=== PATIENT | male | born 1940 | race Caucasian/White ===

== ENCOUNTER 2021-09-21 16:44 | Outpatient (REF) | payer MEDICARE, SELFPAY ==
--- NOTE | 2021-09-21 12:30 | SKI_PTH ---
PATIENT: Devin Kim LOC: [facility] U#:[id number] AGE/SX: 80/M ROOM: RE09/21/[address]: Oc Moseley : 1940 BED: DIS: 09/21/2021 SPEC #: [id number] RECD: 09/21/21 16:51 STATUS: ALEXI PIERRE #: [id number] QUIRINO: 09/21/21 12:[address]: Oc Moseley DEPT: Surgical Specimen RECD BY: Mercedes Holman Tissues: 1 - SKIN BIOPSY(SHAVE/PUNCH) Procedures: SKIN LEVEL 4 Comments: [id number]
== END 2021-09-21 16:45 | disposition home or self-care (01) ==
LOC: NCHCN 16:44
PROVIDERS: PCP Physician Assistant; Visit Provider Physician Assistant
DX: L82.1 Other seborrheic keratosis (principal)
CPT/HCPCS: 88305

== ENCOUNTER 2022-04-06 15:02 | Outpatient (REF) | payer MEDICARE, SELFPAY ==
[2022-04-06 17:27] LABS: TSH 4.09 uIU/mL (0.36-3.74)
== END 2022-04-06 15:03 | disposition home or self-care (01) ==
LOC: NCHCN 15:02
PROVIDERS: PCP Physician Assistant; Visit Provider Physician Assistant
DX: E03.9 Hypothyroidism, unspecified (principal)
CPT/HCPCS: 84443

== ENCOUNTER 2022-06-24 10:14 | Outpatient (REF) | payer MEDICARE, SELFPAY ==
[2022-06-24 15:57] LABS: Anion Gap 6.5 mmol/L (3-11); BUN 24 mg/dL (7-18); CO2 31.5 mmol/L (21.0-32.0); CREATININE 1.2 mg/dL (0.70-1.30); Calcium 9.4 mg/dL (8.5-10.1); Chloride 99 mmol/L (98-107); Estimated GFR 60.75 (mL/min/1.73m2); FREE T4 1.05 ng/dL (0.76-1.46); Glucose 106 mg/dL (74-106); NT-proBNP 2037 pg/mL (<300); Potassium 3.8 mmol/L (3.5-5.1); Sodium 137 mmol/L (136-145)
== END 2022-06-24 10:15 | disposition home or self-care (01) ==
LOC: NCHCN 10:14
PROVIDERS: PCP Physician Assistant; Visit Provider Physician Assistant
DX: I50.9 Heart failure, unspecified (principal)
CPT/HCPCS: 80048; 83880; 84439; 84443

== ENCOUNTER 2022-11-16 11:57 | Inpatient (IN) | payer MEDICARE, SELFPAY ==
[2022-11-16] VITALS (122 sets, daily range): BP systolic 58–124; BP diastolic 31–78; PULSE 59–87; RESP 10–33; TEMP 36.6–37.1; O2SAT 94–100
--- NOTE | 2022-11-16 11:45 | RT.EKG_ITS ---
APPROVED REPORT Exam: Resting ECG Reason for Exam: LOW B/P Patient Location: E HR:68 bpm ECG Measurements Heart Rate [address] 87 P 59 QRSd 179 QRS 87 QT 481 T 254 QTc 512 Conclusion Sinus rhythm...normal P axis, V-rate 60- 99 Right bundle branch block...QRSd>120, terminal axis(90,270) Anteroseptal infarct, age indeterminate...Q >35mS, T neg, V1-V2
[2022-11-16] MEDS: Lactated Ringers 1,000 ML 1000 ML IV ×2 (12:10→13:10)
--- NOTE | 2022-11-16 12:22 | ED.GENADUL_ITS ---
Discharge Plan Disposition Patient Disposition: Admit to [facility] Condition: Serious Discharge Details Chief Complaint: GenMedical Clinical Impression: Diarrhea, Acute dehydration, Acute renal failure, Acute hyponatremia Primary Care Provider: Oc Moseley ED Provider: Yonas Christensen Home Meds and New Rx's Prescriptions: No Action ascorbate calcium (vitamin C) 500 mg tablet 1 g PO DAILY metoprolol succinate 25 mg tablet extended release 24 hr 12.5 mg PO DAILY atorvastatin 20 mg tablet 20 mg PO DAILY levothyroxine [Synthroid] 75 mcg tablet 75 mcg PO DAILY aspirin [Adult Aspirin Regimen] 81 mg tablet,delayed release (DR/EC) 81 mg PO DAILY Centrum Silver 0.4 mg-300 mcg- 250 mcg tablet 1 tab PO DAILY Medical Decision Making 81 y.o.?man?with a PMH of?CHB s/p PPM, AAA (3.1 cm'?2017 and 2.9 cm 2019), HTN, HLD, remote smoking history(quit 50 years ago,?16 pack year), recent NSTEMI at [facility] treated medically with a chronic total occlusion of the LAD and course complicated by low blood pressure is now presenting with diarrhea. No black or bloody stools or fever to suggest serious bacterial infection as the cause of the diarrhea. Likely viral gastro. Likely has low blood pressure here secondary to dehydration appears clinically dehydrated on exam. Giving IV fluids. We will get broad labs to look for electrolyte or metabolic derangements. No abdominal tenderness to suggest intra-abdominal abscess or other pathology. Lab no other focal findings to suspect a separate etiology for the low blood pressure. No focal signs of infection and no fever. No chest pain or shortness of breath. No cough. Will give IV fluids and await initial labs and reevaluate. 150pm Labs significantly deranged with significant hyponatremia to 120. Also with a new acute kidney injury with creatinine to 10. GFR is 4. Patient says that he is still peeing even up until this morning. His blood pressure was improving with IV fluids and almost finished third liter with an improved blood pressure but has now gone to a systolic blood pressure in the 80s. We will start Levophed to treat. Doubt sepsis but given the severity of the patient's illness we will draw blood cultures and give a single dose of IV antibiotics and no focal signs of infection. I reached out to the nephrology team at [facility] and Spoke to Nilesh Heart who recommended continued IV fluids and checking a CK level and a renal ultrasound. He thinks this could be from the multiple medications the patient is on and the diarrheal illness with dehydration. He would want labs checked every 12 hours for worsening creatinine or kidney function and would want a Torres catheter to monitor urine output. Torres catheter ordered. We will reach out to the hospitalist team for further treatment and monitoring of diarrhea, dehydration, and acute renal failure. 215pm Spoke to hospitalist who agreed to admission. Okay with management as above. Asking to cancel ultrasound and add on CT abdomen pelvis without contrast which I have done and also ordered flu/COVID. Patient improving on Levophed. Has only made about 50 mL of urine. Torres catheter in place. Care transitioned at this time to the hospitalist team and patient going to the ICU. Medical Records Medical records reviewed: Yes I reviewed the patient's medical records. Medical records narrative: Franklin, Quyen, MDResidentCardiology?Discharge Summary???Attested?Date of Service:?06/15/2022 12:09 N Attestation signed by Jory Villalpando MD at 06/15/2022 20:46I evaluated the patient and discussed with the team. I agree with the findings and plan as outlined. Close outpt f/u on ICM/HFrEF due to HEALTH INFORMATION SYSTEMS TECHNICIAN of mLAD, echo suggestive of likely nonviable territory but pursue GDMT, cardiac rehab. Despite echo appearance, can pursue outpt viability study and if LAD territory viability then d/w Interventional regarding possible attempt at LAD intervention.?Jory Villalpando MDAselect [facility] [employer], [facility]? ?[facility]?is an 81 y.o.?man?with a PMH of?CHB s/p PPM, AAA (3.1 cm'?2017 and 2.9 cm 2019), HTN, HLD, remote smoking history(quit 50 years ago,?16 pack year)?who presented as a transferred from [facility] for management of NSTEMI.?Patient reports that he had shortness of breath and chest pressure a month ago which was transient and resolved in a few days. ?He had recurrence of symptoms 5 days ago but felt that he was suffering from a cold. ?However the chest pressure and shortness of breath worsened over time and thus he decided to call EMS at 3 AM this morning however son drove him in to [facility].?He was evaluated a [facility] and then transferred to [facility] for further management. He underwent a left heart cath on 06/12 with a HEALTH INFORMATION SYSTEMS TECHNICIAN of his LAD as detailed above. He had a TTE that showed a newly reduced ejection fraction. Attempts at starting goal directed medical therapy was not successful given his baseline lower blood pressure. ?Medication Changes- Metoprolol XL 25mg twice a day- Jardiance 10mg daily- Torsemide 20mg daily- Ranexa 500mg BID- Guaifenesin 600mg SR BID x7 days- Nitro SL PRN- Atorvastatin 40mg daily?Clinical Issues to Follow-up ?Ventricular Ectopy1 episode of non- sustained VT while hospitalized- Zio patch at discharge - Increased metoprolol XL to 25mg twice a day (using twice a day dosing due to his lower systolic blood pressures)?Desaturations at night?Has been benefiting from O2 at nighttime. Discussed sleep study which patient would prefer to have a home sleep study rather than at a facility. 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 Hypothyroidism TSH 7.94, FT4 1.3- Would recommend rechecking thyroid function (not ordered) in about 4 weeks prior to increasing levothyroxine Lab Data Lab results reviewed: Yes I reviewed the patient's lab results. Labs: Hyponatremia, elevated creatinine from baseline. Very low GFR. Elevated BUN. Normal potassium. Other labs unremarkable ECG Data Attestation: I personally reviewed and interpreted this ECG (s) as follows: Prior ECG tracings: available for review Interpretation: Ventricularly paced rhythm but otherwise unremarkable EKG HPI General Mode of arrival: ambulatory . Date/Time Provider Initiated Documentation: 11/16/22 12:09 . Limitations to Documentation: no limitations . Information obtained by: patient . HPI Narrative: 81 y.o.?man?with a PMH of?CHB s/p PPM, AAA (3.1 cm'?2018 and 2.9 cm 2019), HTN, HLD, remote smoking history(quit 50 years ago,?16 pack year), recent NSTEMI at [facility] treated medically with a chronic total occlusion of the LAD and course complicated by low blood pressure and difficulty starting medical management is now presenting with low blood pressure. Says for the last 3 to 4 days he has had profuse watery diarrhea. No black or bloody stools. No fevers or chills. No nausea or vomiting. No abdominal pain. He says he feels little dehydrated. He checked his blood pressure this morning and it was low and he called his doctor who referred him here. He is denying any other complaints. Says he is still urinating. Denies any other complaints. Related Data Home Medications Medication Instructions Recorded Confirmed ascorbate calcium (vitamin C) 500 1 g PO DAILY 04/09/22 mg tablet aspirin 81 mg tablet,delayed 81 mg PO DAILY 04/09/22 release (Adult Aspirin Regimen) atorvastatin 20 mg tablet 20 mg PO DAILY 04/09/22 levothyroxine 75 mcg tablet 75 mcg PO DAILY 04/09/22 (Synthroid) metoprolol succinate 25 mg 12.5 mg PO DAILY 04/09/22 tablet,extended release 24 hr [id number]-sbh-ldorz acid 0.4 1 tab PO DAILY 04/09/22 mg-lycopene 300 mcg-lutein 250 mcg tablet (Centrum Silver) Allergies Allergy/AdvReac Type Severity Reaction Status Date / Time No Known Allergies Allergy Verified 04/09/22 08:32 General Stated Complaint: GenMedical NAIDA: 2 Review of Systems Constitutional Constitutional: Denies chills, Denies fever(s) and Denies headache(s) Eyes Eyes: Denies change in vision ENT Ears, Nose, Mouth, and Throat: Denies headache(s) and Denies odynophagia Cardiovascular Cardiovascular: Denies chest pain and Denies dyspnea Respiratory Respiratory: Denies dyspnea Gastrointestinal Gastrointestinal: Denies abdominal pain, Denies melena, Reports diarrhea, Denies nausea, Denies odynophagia and Denies vomiting Genitourinary Genitourinary: Denies dysuria Musculoskeletal Musculoskeletal: Denies myalgias Integumentary/Breasts Skin/Breast: Denies changing lesions Neurologic Neurologic: Denies behavioral changes and Denies headache(s) Psychiatric Psychiatric: Denies behavioral changes Endocrine Endocrine: Denies heat intolerance Hematologic/Lymphatic Hematologic/Lymphatic: Denies lymphadenopathy PFSH All Active Problems (Updated 11/16/22 @ 14:18 by Yonas Christensen MD) Diarrhea (Acute) Acute dehydration (Acute) Acute renal failure (Acute) Acute hyponatremia (Acute) Medical History Abdominal aortic aneurysm Atypical chest pain Cervical radiculopathy DJD (degenerative joint disease) Hearing loss Heart block HLD (hyperlipidemia) HTN (hypertension) Hx of radiation therapy Hypothyroidism Inguinal hernia Neoplasm Social History Smoking/Tobacco Use Status: Never Smoking risk assessment performed?: Yes Alcohol Intake: current Alcohol Intake frequency: a few times a month Alcohol type: wine Drug use: Never Substance use type: does not use Do you feel safe at home: Yes Do you feel safe in your relationship?: Yes Exam Const General: cooperative Nutritional Appearance: average body habitus Orientation: alert, awake and oriented x3 HENMT Head: normal to inspection Ears: external ears normal Other: Dry mucous membranes Eyes Pupils: PERRL EOM: EOM intact bilaterally and No nystagmus Neck Neck: full ROM and no tracheal deviation Chest Chest: normal inspection of the chest Resp Auscultation: clear to auscultation bilaterally Cardio Rate: regular rate Rhythm: regular rhythm GI Inspection: normal to inspection Palpation: soft, no guarding, not rigid and nontender Back/Spine/Pelvis Back: No no CVA tenderness Thoracic/Lumbar Spine: thoracic and lumbar spine normal to inspection Skin General skin exam: no rashes or lesions noted Neuro General: patient alert, patient awake and patient oriented x3 Cranial Nerves: CN's II-XI intact bilaterally, PERRL and no nystagmus Cognition: normal cognition Motor: muscle tone normal throughout and strength 5/5 throughout Sensory Exam: no sensory deficits noted Extrem General: normal to inspection Course Vital Signs Vital signs: Vital Signs Temperature 36.6 C 11/16/22 12:03 Respiratory Rate 18 11/16/22 12:03 Blood Pressure 58/42 L 11/16/22 12:03 Pulse Oximetry 100 11/16/22 12:03 Temperature 36.6 C 11/16/22 12:03 Temperature Source Temporal Artery Scan 11/16/22 12:03 Respiratory Rate 18 11/16/22 12:03 Blood Pressure 58/42 L 11/16/22 12:03 Pulse Oximetry 100 11/16/22 12:03 Oxygen Delivery Method Room Air 11/16/22 12:03 Oxygen Flow Rate 0 11/16/22 12:03 Critical Care Time Critical Care Time Critical Care Time: Yes Total Critical Care Time: 30 Attestation: I performed 30 minutes of critical care time as above exclusive of procedure time. Yonas Christensen MD
[2022-11-16 12:32] LABS: Absolute Basophil Count 0.05 10^3/uL (0.0-0.2); Absolute Eosinophil Count 0.05 10^3/uL (0.0-0.7); Absolute Lymphocyte Count 1.46 10^3/uL (1.2-3.4); Absolute Monocyte Count 0.87 10^3/uL (0.1-0.8); Basophils % 0.4; Eosinophils % 0.4; HCT 36.8 % (40.0-50.0); HGB 13.1 g/dL (13.5-17.5); Immature Grans % 0.9; Lymphocytes % 12.8; MCHC 35.6 % (32.0-36.0); MCV 84 fL (80-95); MPV 8.3 fL (8.0-11.0); Monocytes % 7.6; Neutrophils % 77.9; Platelet Count 550 10^3/uL (130-400); RBC 4.37 10^6/uL (4.36-5.78); RDW 12.6 % (11.8-14.1); RDW-SD 39.2 fL; WBC 11.42 10^3/uL (4.4-10.8)
[2022-11-16] MEDS: Normal Saline 1,000 ML 1000 ML IV (12:39)
[2022-11-16 12:48] LABS: ALT 37 U/L (16-63); AST 9 U/L (15-37); Albumin 3.3 g/dL (3.4-5.0); Alkaline Phosphatase 83 U/L (46-116); Anion Gap 17.6 mmol/L (3-11); Bilirubin, Total 0.4 mg/dL (0.2-1.0); CO2 25.4 mmol/L (21.0-32.0); Calcium 8.6 mg/dL (8.5-10.1); Chloride 77 mmol/L (98-107); Glucose 141 mg/dL (74-106); Lipase 43 U/L (16-77); Magnesium 2.2 mg/dL (1.8-2.4); Potassium 3.5 mmol/L (3.5-5.1); Total Protein 7.7 g/dL (6.4-8.2)
[2022-11-16 12:51] LABS: BUN 96 mg/dL (7-18)
[2022-11-16 12:52] LABS: CREATININE 10.3 mg/dL (0.70-1.30); Sodium 120 mmol/L (136-145)
[2022-11-16] MEDS: Norepinephrine in D5W 8 MG/250 ML BAG 10 MG IV (13:59)
[2022-11-16 14:00] LABS: Creatine Kinase 365 U/L (39-308)
[2022-11-16] MEDS: Lidocaine 2% Jelly 11 ML SYR UR (14:23)
[2022-11-16 14:26] LABS: Lactate 1.9 mmol/L (0.6-1.4)
[2022-11-16] MEDS: PIPERACILLIN/TAZO 4.5 GM in Normal Saline 100 ML IVPB (14:26)
[2022-11-16 14:50] LABS: Bilirubin Negative (Negative); Blood Small (Negative); Clarity Cloudy (Clear); Glucose Negative (Negative); Ketones Trace mg/dL (Negative); Leukocyte Esterase Negative (Negative); Nitrite Negative (Negative); Urobilinogen 0.2 mg/dL (Up to 0.2)
--- NOTE | 2022-11-16 15:01 | DI.CT_ITS ---
Exam(s) CT ABDOMEN PELVIS WO EXAM: CT ABDOMEN PELVIS WO CLINICAL HISTORY: renal failure. ? obstruction. TECHNIQUE: Imaging Protocol: Axial computed tomography images with coronal and sagittal reformatted images were created and reviewed. COMPARISON: No exams were available for comparison FINDINGS: ABDOMEN: Lung Bases: The distal aspect of pacemaker leads are noted. Dependent atelectatic changes are seen. Liver: Normal density. No measurable mass. Gallbladder and biliary tract: No radiodense calculus or biliary ductal dilation. Pancreas: Normal density, no abnormal calcifications or inflammatory process. Spleen: Normal. Kidneys: Normal size, contour and axis.There is a 2 mm nonobstructing stone in the lower pole of the right kidney. There is a 5 cm homogeneously hypodense exophytic lesion off of the inferior pole of t he right kidney. It appears to represent a simple cyst. Nonemergent sonographic correlation is jamey mmended. Adrenal glands: No mass is seen. Lymph nodes: Within normal limits. Abdominal Aorta: Abdominal portion non-dilated. Atherosclerosis. There is ectasia of the distal abdo elian aorta. PELVIS: Bladder:There is diffuse thickening of the wall of the urinary bladder. The bladder is underdistende d. There is a Torres catheter in place. Air is seen within the urinary bladder likely reflecting the recent instrumentation. Bowel: There is a right inguinal hernia containing an unremarkable loop of small bowel. There is flu id seen in the proximal large bowel and small bowel which may reflect a diarrheal illness. There is a loop of small bowel in the right lower quadrant which does show some bowel wall thickening and ther e is infiltration in the surrounding fat. There is air in the mesentery which appears to be extralum inal. There is a calcification in the right lower quadrant which appears to lie at the base of the a ppendix. The appendix appears to be distended measuring 8 mm. Appendicitis should be considered. Peritoneal cavity: No ascites, collection or mesenteric inflammatory response. Reproductive organs: Unremarkable as visualized. Bones: Within normal limits. Soft Tissues: There is a fat containing left inguinal hernia. IMPRESSION: 1. In the right lower quadrant, there are loops of small bowel with thickened martin with adjacent inf lammation. The base of the appendix appears visualized within the appendicoliths present. There trevino s appear to be a tubular structure measuring 8 mm and appendicitis should be considered. There does appear to be extraluminal air in the right lower quadrant suggesting perforation. Appendicitis shoul d be considered. An adjacent enteritis is suspected. 2. Small bowel containing right inguinal hernia without evidence of obstruction. 3. Thickening of the wall of the urinary bladder. The urinary bladder is underdistended. Cystitis c annot be entirely excluded. 4. Findings were discussed with Dr. Gail Christensen at 3:20 p.m. on 11/16/2022. RADIATION DOSE DELIVERED: 724.51mGy.cm Total DLP DATA REPOSITORY: All CT scans at this facility are submitted to the National Radiology Data Registry (NRDR) Dose Index Registry (DIR) with the [employer] ([employer]). RADIATION OPTIMIZATION: All CT scans at this facility use at least one of these dose optimization te chniques: automated exposure control; mA and/or kV adjustment per patient size (includes targeted exa ms where dose is matched to clinical indication); or iterative reconstruction.
[2022-11-16 15:11] LABS: Procalcitonin 0.8 ng/mL
--- NOTE | 2022-11-16 15:16 | DI.RAD_ITS ---
Exam(s) XR PORTABLE CHEST AP EXAM: XR PORTABLE CHEST AP CLINICAL HISTORY: ? pneumonia or pulmonary edema. Low bp TECHNIQUE: 2D digital imaging was performed of the chest. One images were obtained. AP views were obtained. COMPARISON: No exams were available for comparison FINDINGS: MEDIASTINUM: Normal. HEART: Normal. The cardiac pacer is in good position. PULMONARY VASCULATURE: Normal. LUNGS: Clear. PLEURAL SPACE: No pleural effusion or pneumothorax. BONE:Within normal limits for the patient's age. OTHER FINDINGS:Normal. IMPRESSION: No acute pulmonary findings. DATA REPOSITORY: RADIATION DOSE DELIVERED:
[2022-11-16 15:17] LABS: Epithelial Cells Negative HPF (Negative)
[2022-11-16 15:18] LABS: Bacteria Rare HPF (Negative); C & S Indicated? No; Casts 0-2 Hyaline LPF (Negative); Crystals Few Amorphous HPF (Negative); Mucus Heavy (Negative); Other Cells Few Renal (Negative)
[2022-11-16 15:19] LABS: COVID-19 PCR Negative (Negative); Influenza A PCR Negative (Negative); Influenza B PCR Negative (Negative); RSV PCR Negative (Negative)
[2022-11-16 15:21] LABS: Source Nasopharynx
--- NOTE | 2022-11-16 16:33 | W.PM.HP.N ---
Date of service: 11/16/22 Time of Service: 16:33 Assessment and Plan Assessment and plan (1) Septic shock: Status: Acute Assessment and plan: Suspect that this is in part a cause of the patient's hypotension. The most likely source appears to be perforated appendicitis per CT abdomen. General surgery is consulted. The patient was started empirically on vancomycin, ceftriaxone, flagyl. Continue norepinephrine and IVF. Trend lactates, await blood cultures. MOnitor pulmonary status. (2) Perforated appendicitis: Status: Acute Assessment and plan: As above Cover with metronidazole/flagyl. I have discussed the case with Dr Rg. (3) Enteritis: Status: Acute Assessment and plan: This could be the presentation of appendicitis vs a totally unrelated viral proces.s Tx with IV fluids, as above. Obtain stool studies if diarrhea occurs here. (4) Acute dehydration: Status: Acute Assessment and plan: The patient still appears clinically dry. Will hydrate IV as above (5) Acute renal failure: Status: Acute Assessment and plan: Clinically this is prerenal. Only a small amount of urine was produced when the parikh catheter was inserted. Will treat with IVF, treat infection. (6) Acute hyponatremia: Status: Acute Assessment and plan: In setting of dehydration. Will trend chemistries every 6 hrs while hydrating with isotonic fluids. (7) DVT prophylaxis: Status: Acute Assessment and plan: SC heparin (8) Discharge planning issues: Status: Acute Assessment and plan: Full code as discussed with the patient. Admit to the ICU. C/s PT. Total Critical Care Time 45 minutes. History of Present Illness History of Present Illness Chief Complaint: Diarrhea Narrative: Mr Kim is an 81 year old male with PMHx of CAD s/p NSTEMI and w/ h/o chronic total occlusion of LAD per cardiac cath at [facility] in June, as well as h/o CHF (unknown LVEF), complete heart block s/p pacemaker, AAA, hyperlipidemia, hypothyroidism, who presented to [facility] ED at the recommendation of his PCP after having watery diarrhea x 1 week. Denies fevers, nausea, abdominal pain, sick contacts. The diarrhea is, in fact, already getting better, and the patient has been eating and drinking at home as much as he could, but he did notice that he was becoming weaker, had stumbled on his feet without LOC a couple of days ago hitting his R forehead on the wall, and has been using a walker to ambulate. Upon arrival to the ED, he was found to have a BP of 58/42. He was given 3 L of IV fluids with SBP improving to low 90s, but then dropping again to the 70s, at which point he was initiated on levophed while being maintained on IVF. His ER workup revealed WBC of 11.42, H/H of 13.1/36.8, lactate of 1.9, a sodium of 120, a creatinine of 10.3 (baseline 1.2), an anion gap of 17.6, a CPK of 365. His procalcitonin is 0.8 while his UA is not c/w a UTI and his CXR is negative. There is a question of perforated appendicitis on CT. Review of Systems All systems reviewed & are unremarkable except as noted in HPI and below PFSH All Active Problems (Updated 11/16/22 @ 17:50 by Lala Infante MD) Discharge planning issues (Acute) DVT prophylaxis (Acute) Enteritis (Acute) Perforated appendicitis (Acute) Septic shock (Acute) Diarrhea (Acute) Acute dehydration (Acute) Acute renal failure (Acute) Acute hyponatremia (Acute) Medical History (Updated 11/16/22 @ 17:50 by Lala Infante MD) Abdominal aortic aneurysm Atypical chest pain Cervical radiculopathy DJD (degenerative joint disease) Hearing loss Heart block HLD (hyperlipidemia) HTN (hypertension) Hx of radiation therapy Hypothyroidism Inguinal hernia Neoplasm Surgical History (Updated 11/16/22 @ 17:41 by Lala Infante MD) S/P placement of cardiac pacemaker Family History (Updated 11/16/22 @ 17:45 by Lala Infante MD) Father Heart disease Stroke Hypertension Son Diabetes Daughter Diabetes Sister Cancer breast cancer Social History (Updated 11/16/22 @ 17:46 by Lala Infante MD) Smoking/Tobacco Use Status: Former Tobacco Use Smoking risk assessment performed?: Yes Alcohol Intake: current Alcohol Intake frequency: a few times a month Alcohol type: wine Drug use: Never Substance use type: does not use Do you feel safe at home: Yes Do you feel safe in your relationship?: Yes Meds Allergies and Home Medications Allergies Allergy/AdvReac Type Severity Reaction Status Date / Time No Known Allergies Allergy Verified 04/09/22 08:32 Home Medications Medication Instructions Recorded Confirmed Type ascorbate calcium (vitamin C) 500 1 g PO DAILY 04/09/22 History mg tablet aspirin 81 mg tablet,delayed 81 mg PO DAILY 04/09/22 History release (Adult Aspirin Regimen) atorvastatin 20 mg tablet 20 mg PO DAILY 04/09/22 History levothyroxine 75 mcg tablet 75 mcg PO DAILY 04/09/22 History (Synthroid) metoprolol succinate 25 mg 12.5 mg PO DAILY 04/09/22 History tablet,extended release 24 hr [id number] acid 0.4 1 tab PO DAILY 04/09/22 History mg-lycopene 300 mcg-lutein 250 mcg tablet (Centrum Silver) Exam Narrative Exam Narrative: General: Pleasant elderly male who does not look sick, A&Ox3, NAD, speaking on the phone in bed, RED DEVIL Neurological: A&Ox3, [place]IL, no focal deficits Psychiatric: Appropriate speech pattern/content Skin: ecchymosis over R eyebrow HEENT: ecchymosis over right eyebrow as above, normocephalic, EOMI, dry MM, clear oropharynx, no submandibular or cervical lymphadenopathy, no goiter or JVD Cardiovascular: RRR, no m/r/g Lungs: CTAB Gastrointestinal: soft, nontender, nondistended, no peritoneal signs Genitourinary: has a parikh Extremities: no edema BLEs, +1 pedal pulses B Results Imaging Additional studies: CT abdomen/pelvis: 1. In the right lower quadrant, there are loops of small bowel with thickened martin with adjacent inflammation.? The base of the appendix appears visualized within the appendicoliths present.? There does appear to be a tubular structure measuring 8 mm and appendicitis should be considered.? There does appear to be extraluminal air in the right lower quadrant suggesting perforation.? Appendicitis should be considered.? An adjacent enteritis is suspected. 2. Small bowel containing right inguinal hernia without evidence of obstruction. 3. Thickening of the wall of the urinary bladder.? The urinary bladder is underdistended.? Cystitis cannot be entirely excluded. CXR: No acute pulmonary findings. Labs 11/16/22 12:20 11/16/22 12:20 Labs: Laboratory Results - last 24 hr 11/16/22 11/16/22 11/16/22 12:20 12:20 12:20 WBC 11.42 H RBC 4.37 Hgb 13.1 L Hct 36.8 L MCV 84 MCH 30.0 MCHC 35.6 RDW 12.6 Plt Count 550 H MPV 8.3 Immature Gran % 0.9 Neutrophils % 77.9 Lymphocytes % 12.8 Monocytes % 7.6 Eosinophils % 0.4 Basophils % 0.4 Nucleated RBC % 0.0 Absolute Neutrophils 8.90 H Absolute Lymphocytes 1.46 Absolute Monocytes 0.87 H Absolute Eosinophils 0.05 Absolute Basophils 0.05 VBG Lactate Sodium 120 L* Potassium 3.5 Chloride 77 L Carbon Dioxide 25.4 Anion Gap 17.6 H BUN 96 H* Creatinine 10.3 H* Est GFR (CKD-EPI 2020) 4.60 Glucose 141 H Calcium 8.6 Magnesium 2.2 Total Bilirubin 0.4 AST 9 L ALT 37 Alkaline Phosphatase 83 Creatine Kinase 365 H Total Protein 7.7 Albumin 3.3 L Lipase 43 Procalcitonin Urine Color Urine Clarity Urine pH Ur Specific [place] Urine Protein Urine Ketones Urine Blood Urine Nitrite Urine Bilirubin Urine Urobilinogen Ur Leukocyte Esterase Urine RBC Urine WBC Ur Epithelial Cells Urine Crystals Urine Bacteria Urine Casts Urine Mucus Urine Other Ur Culture Indicated? Urine Glucose COVID-19 Source SARS-CoV-2 (PCR) Influenza Type A (PCR) Influenza Type B (PCR) RSV (PCR) 11/16/22 11/16/22 11/16/22 14:20 14:20 14:30 WBC RBC Hgb Hct MCV MCH MCHC RDW Plt Count MPV Immature Gran % Neutrophils % Lymphocytes % Monocytes % Eosinophils % Basophils % Nucleated RBC % Absolute Neutrophils Absolute Lymphocytes Absolute Monocytes Absolute Eosinophils Absolute Basophils VBG Lactate 1.9 H Sodium Potassium Chloride Carbon Dioxide Anion Gap BUN Creatinine Est GFR (CKD-EPI 2020) Glucose Calcium Magnesium Total Bilirubin AST ALT Alkaline Phosphatase Creatine Kinase Total Protein Albumin Lipase Procalcitonin 0.8 Urine Color Dark Yellow Urine Clarity Cloudy Urine pH 5.0 Ur Specific [place] 1.020 Urine Protein 30 H Urine Ketones Trace H Urine Blood Small H Urine Nitrite Negative Urine Bilirubin Negative Urine Urobilinogen 0.2 Ur Leukocyte Esterase Negative Urine RBC 5-10 H Urine WBC 3-5 Ur Epithelial Cells Negative Urine Crystals Few Amorphous Urine Bacteria Rare Urine Casts 0-2 Hyaline Urine Mucus Heavy Urine Other Few Renal Ur Culture Indicated? No Urine Glucose Negative COVID-19 Source SARS-CoV-2 (PCR) Influenza Type A (PCR) Influenza Type B (PCR) RSV (PCR) 11/16/22 14:33 WBC RBC Hgb Hct MCV MCH MCHC RDW Plt Count MPV Immature Gran % Neutrophils % Lymphocytes % Monocytes % Eosinophils % Basophils % Nucleated RBC % Absolute Neutrophils Absolute Lymphocytes Absolute Monocytes Absolute Eosinophils Absolute Basophils VBG Lactate Sodium Potassium Chloride Carbon Dioxide Anion Gap BUN Creatinine Est GFR (CKD-EPI 2020) Glucose Calcium Magnesium Total Bilirubin AST ALT Alkaline Phosphatase Creatine Kinase Total Protein Albumin Lipase Procalcitonin Urine Color Urine Clarity Urine pH Ur Specific [place] Urine Protein Urine Ketones Urine Blood Urine Nitrite Urine Bilirubin Urine Urobilinogen Ur Leukocyte Esterase Urine RBC Urine WBC Ur Epithelial Cells Urine Crystals Urine Bacteria Urine Casts Urine Mucus Urine Other Ur Culture Indicated? Urine Glucose COVID-19 Source Nasopharynx SARS-CoV-2 (PCR) Negative Influenza Type A (PCR) Negative Influenza Type B (PCR) Negative RSV (PCR) Negative Last Vital Signs Temp 36.6 C 11/16/22 12:03 Pulse 72 11/16/22 15:59 Resp 15 11/16/22 16:20 BP 115/56 L 11/16/22 15:59 Pulse Ox 97 11/16/22 16:20 Time Spent Time spent with Patient: 40-54 minutes Time was spent: preparing to see the patient(eg.review tests), obtaining and/or reviewing separately otained hiistory, ordering medications,tests, procedures, referring, communicating with other health healthcare liaison, indepentently interpreting results, counseling the patient and care coordination
[2022-11-16 18:39] LABS: Lactate 0.8 mmol/L (0.6-1.4)
[2022-11-16 18:56] LABS: Anion Gap 17.5 mmol/L (3-11); CO2 21.5 mmol/L (21.0-32.0); Calcium 7.3 mg/dL (8.5-10.1); Chloride 84 mmol/L (98-107); Estimated GFR 5.41 (mL/min/1.73m2); Glucose 107 mg/dL (74-106); Potassium 3.1 mmol/L (3.5-5.1)
[2022-11-16 19:00] LABS: BUN 90 mg/dL (7-18); Sodium 123 mmol/L (136-145)
[2022-11-16] MEDS: metroNIDAZOLE 500 MG/100 ML BAG 100 MG IVPB (19:03)
[2022-11-16] MEDS: VANCOMYCIN/WATER (PEG) 1.25 GM/250 ML BAG IV (19:03)
[2022-11-16] MEDS: cefTRIAXone 2 GM/50 ML BAG IVPB (19:03)
--- NOTE | 2022-11-16 19:17 | W.SURGCON ---
Date of service: 11/16/22 Time of Service: 19:30 Assessment and Plan Assessment and plan (1) Perforated appendicitis: Status: Acute Assessment and plan: 81 yo man with likely viral enteritis. He is being resuscitated and at the time I saw him, he is no longer in critical condition. He is making good urine output and HD stable. Abdominal exam is completely benign. I looked at the CT scan. No gross free air. No abscess. non-specific inflammation around loops of small bowel. No obstruction. R inguinal hernia with bowel but no evidence of strangulation or obstruction there either. Appendix looks normal to me. 8mm. Clinically, there is nothing further to do for him from a surgical perspective. The hernia doesn't bother him . . . so he doesn't need to fix it. It is uninvolved in today's presentation. I think the appendix is normal radiographically . . . clinically there is no suspicion for appendicitis. Surgery signing off. No followup needed. History of Present Illness Narrative: 81 yo man has had diarrhea for the last 4 or 5 days. He was admitted because of dehydration. He denies ever having abdominal pain. He had a CT scan showing questionable inflammation of the appendix near loops of inflamed small bowel. Radiology was concerned for possible appendicitis. [facility] All Active Problems (Updated 11/16/22 @ 17:50 by Lala Infante MD) Discharge planning issues (Acute) DVT prophylaxis (Acute) Enteritis (Acute) Perforated appendicitis (Acute) Septic shock (Acute) Diarrhea (Acute) Acute dehydration (Acute) Acute renal failure (Acute) Acute hyponatremia (Acute) Medical History (Updated 11/16/22 @ 17:50 by Lala Infante MD) Abdominal aortic aneurysm Atypical chest pain Cervical radiculopathy DJD (degenerative joint disease) Hearing loss Heart block HLD (hyperlipidemia) HTN (hypertension) Hx of radiation therapy Hypothyroidism Inguinal hernia Neoplasm Surgical History (Updated 11/16/22 @ 17:41 by Lala Infante MD) S/P placement of cardiac pacemaker Family History (Updated 11/16/22 @ 17:45 by Lala Infante MD) Father Heart disease Stroke Hypertension Son Diabetes Daughter Diabetes Sister Cancer breast cancer Social History (Updated 11/16/22 @ 17:46 by Lala Infante MD) Smoking/Tobacco Use Status: Former Tobacco Use Smoking risk assessment performed?: Yes Alcohol Intake: current Alcohol Intake frequency: a few times a month Alcohol type: wine Drug use: Never Substance use type: does not use Do you feel safe at home: Yes Do you feel safe in your relationship?: Yes Exam Narrative Exam Narrative: Gen: Nontoxic, alert and comfortable Neuro: AxOx3 Psych: Good mood and affect Abdomen: Soft, nondistended and nontender. Palpable R inguinal hernia is soft and not tender. Results Last Vital Signs Temp 98.8 F 11/16/22 16:00 Pulse 66 11/16/22 17:30 Resp 16 11/16/22 17:30 BP 123/54 L 11/16/22 17:30 Pulse Ox 98 11/16/22 17:30 Labs 11/16/22 12:20 11/16/22 18:30 Labs: Laboratory Results - last 24 hr 11/16/22 11/16/22 11/16/22 12:20 12:20 12:20 WBC 11.42 H RBC 4.37 Hgb 13.1 L Hct 36.8 L MCV 84 MCH 30.0 MCHC 35.6 RDW 12.6 Plt Count 550 H MPV 8.3 Immature Gran % 0.9 Neutrophils % 77.9 Lymphocytes % 12.8 Monocytes % 7.6 Eosinophils % 0.4 Basophils % 0.4 Nucleated RBC % 0.0 Absolute Neutrophils 8.90 H Absolute Lymphocytes 1.46 Absolute Monocytes 0.87 H Absolute Eosinophils 0.05 Absolute Basophils 0.05 VBG Lactate Sodium 120 L* Potassium 3.5 Chloride 77 L Carbon Dioxide 25.4 Anion Gap 17.6 H BUN 96 H* Creatinine 10.3 H* Est GFR (CKD-EPI 2020) 4.60 Glucose 141 H Calcium 8.6 Magnesium 2.2 Total Bilirubin 0.4 AST 9 L ALT 37 Alkaline Phosphatase 83 Creatine Kinase 365 H Total Protein 7.7 Albumin 3.3 L Lipase 43 Procalcitonin Urine Color Urine Clarity Urine pH Ur Specific [place] Urine Protein Urine Ketones Urine Blood Urine Nitrite Urine Bilirubin Urine Urobilinogen Ur Leukocyte Esterase Urine RBC Urine WBC Ur Epithelial Cells Urine Crystals Urine Bacteria Urine Casts Urine Mucus Urine Other Ur Culture Indicated? Urine Glucose COVID-19 Source SARS-CoV-2 (PCR) Influenza Type A (PCR) Influenza Type B (PCR) RSV (PCR) 11/16/22 11/16/22 11/16/22 14:20 14:20 14:30 WBC RBC Hgb Hct MCV MCH MCHC RDW Plt Count MPV Immature Gran % Neutrophils % Lymphocytes % Monocytes % Eosinophils % Basophils % Nucleated RBC % Absolute Neutrophils Absolute Lymphocytes Absolute Monocytes Absolute Eosinophils Absolute Basophils VBG Lactate 1.9 H Sodium Potassium Chloride Carbon Dioxide Anion Gap BUN Creatinine Est GFR (CKD-EPI 2020) Glucose Calcium Magnesium Total Bilirubin AST ALT Alkaline Phosphatase Creatine Kinase Total Protein Albumin Lipase Procalcitonin 0.8 Urine Color Dark Yellow Urine Clarity Cloudy Urine pH 5.0 Ur Specific [place] 1.020 Urine Protein 30 H Urine Ketones Trace H Urine Blood Small H Urine Nitrite Negative Urine Bilirubin Negative Urine Urobilinogen 0.2 Ur Leukocyte Esterase Negative Urine RBC 5-10 H Urine WBC 3-5 Ur Epithelial Cells Negative Urine Crystals Few Amorphous Urine Bacteria Rare Urine Casts 0-2 Hyaline Urine Mucus Heavy Urine Other Few Renal Ur Culture Indicated? No Urine Glucose Negative COVID-19 Source SARS-CoV-2 (PCR) Influenza Type A (PCR) Influenza Type B (PCR) RSV (PCR) 11/16/22 11/16/22 11/16/22 14:33 18:30 18:30 WBC RBC Hgb Hct MCV MCH MCHC RDW Plt Count MPV Immature Gran % Neutrophils % Lymphocytes % Monocytes % Eosinophils % Basophils % Nucleated RBC % Absolute Neutrophils Absolute Lymphocytes Absolute Monocytes Absolute Eosinophils Absolute Basophils VBG Lactate 0.8 Sodium 123 L* Potassium 3.1 L Chloride 84 L Carbon Dioxide 21.5 Anion Gap 17.5 H BUN 90 H* Creatinine 9.0 H* Est GFR (CKD-EPI 2020) 5.41 Glucose 107 H Calcium 7.3 L Magnesium Total Bilirubin AST ALT Alkaline Phosphatase Creatine Kinase Total Protein Albumin Lipase Procalcitonin Urine Color Urine Clarity Urine pH Ur Specific [place] Urine Protein Urine Ketones Urine Blood Urine Nitrite Urine Bilirubin Urine Urobilinogen Ur Leukocyte Esterase Urine RBC Urine WBC Ur Epithelial Cells Urine Crystals Urine Bacteria Urine Casts Urine Mucus Urine Other Ur Culture Indicated? Urine Glucose COVID-19 Source Nasopharynx SARS-CoV-2 (PCR) Negative Influenza Type A (PCR) Negative Influenza Type B (PCR) Negative RSV (PCR) Negative
[2022-11-16] MEDS: Lactated Ringers 1,000 ML 75 ML IV (21:19)
[2022-11-16] MEDS: Norepinephrine in D5W 8 MG/250 ML BAG 9.375 MG IV (21:20)
[2022-11-16] MEDS: diphenhydrAMINE 25 MG CAP PO (22:26)
[2022-11-16] MEDS: Acetaminophen 500 MG TAB PO (22:26)
[2022-11-16 23:29] LABS: Creatinine,Urine 94.56 mg/dL; Sodium, Urine 29 mmol/L
[2022-11-17] VITALS (126 sets, daily range): BP systolic 66–135; BP diastolic 33–98; PULSE 56–89; RESP 13–32; TEMP 36.4–37.6; O2SAT 94–100
[2022-11-17 00:31] LABS: Anion Gap 14.5 mmol/L (3-11); CO2 22.5 mmol/L (21.0-32.0); Calcium 7.4 mg/dL (8.5-10.1); Chloride 86 mmol/L (98-107); Estimated GFR 6.33 (mL/min/1.73m2); Glucose 116 mg/dL (74-106)
[2022-11-17 00:38] LABS: BUN 90 mg/dL (7-18); CREATININE 7.9 mg/dL (0.70-1.30); Potassium 2.9 mmol/L (3.5-5.1); Sodium 123 mmol/L (136-145)
[2022-11-17] MEDS: metroNIDAZOLE 500 MG/100 ML BAG 100 MG IVPB ×3 (02:14→19:04)
--- NOTE | 2022-11-17 06:25 | NUR.NOTE ---
pt hungry for breakfast. surgeon in lst night and told him he could eat Ate soup,craclers , jello and juice last night for supper and tolerated well. Ordered breakfast for this morning.
[2022-11-17 07:03] LABS: Absolute Basophil Count 0.04 10^3/uL (0.0-0.2); Absolute Eosinophil Count 0.05 10^3/uL (0.0-0.7); Absolute Monocyte Count 1.01 10^3/uL (0.1-0.8); Basophils % 0.3; Eosinophils % 0.4; HCT 34.9 % (40.0-50.0); HGB 12.5 g/dL (13.5-17.5); Immature Grans % 0.8; Lymphocytes % 8.3; MCH 30.1 pg (27.0-33.0); MCHC 35.8 % (32.0-36.0); MCV 84 fL (80-95); MPV 8.5 fL (8.0-11.0); Monocytes % 7.8; Neutrophils % 82.4; Platelet Count 483 10^3/uL (130-400); RBC 4.15 10^6/uL (4.36-5.78); RDW 12.5 % (11.8-14.1); RDW-SD 38.2 fL; WBC 12.96 10^3/uL (4.4-10.8)
[2022-11-17 07:14] LABS: Absolute Lymphocyte Count 1.08 10^3/uL (1.2-3.4); Absolute Neutrophil Count 10.68 10^3/uL (1.2-6.7)
[2022-11-17 07:18] LABS: Anion Gap 14.6 mmol/L (3-11); CO2 23.4 mmol/L (21.0-32.0); Calcium 7.9 mg/dL (8.5-10.1); Chloride 89 mmol/L (98-107); Estimated GFR 7.32 (mL/min/1.73m2); Glucose 103 mg/dL (74-106); Magnesium 1.8 mg/dL (1.8-2.4); Potassium 3.4 mmol/L (3.5-5.1); Sodium 127 mmol/L (136-145)
[2022-11-17 07:29] LABS: BUN 86 mg/dL (7-18)
[2022-11-17] MEDS: Potassium Chloride 20 MEQ TABCR 40 MEQ PO ×2 (08:20→22:21)
[2022-11-17] MEDS: MAGNESIUM SULFATE 2 GM/50 ML BAG IVPB (08:21)
[2022-11-17] MEDS: Lactated Ringers 250 ML IV (08:52)
--- NOTE | 2022-11-17 08:53 | PDOC.CMIN ---
Date of service: 11/17/22 Time of Service: 08:53 Care Management Initial Assmt Initial Assessment REASON FOR HOSPITALIZATION:: Dehydration, Hypotension, septic shock PREVIOUS FUNCTIONAL STATUS/SOCIAL/FAMILY SUPPORTS:: Devin lives in [place] with his Daina and son Mariusz. His other children Katie Francisco and Cuong live in other parts of the [facility]. 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 Devin is active and independent at baseline. CURRENT FUNCTIONAL STATUS:: Devin was lying in bed when CM met with him. He is awake, pleasant and easily engages in this interview. Devin denies any concerns at this time and shares that he is very pleased with the care he is receiving at [facility]. provided him with a pair of reader glasses and a puzzle book to help pass the time. ADVANCE DIRECTIVES:: None on file at [facility] Has patient been provided with info about the portal/API?: Yes Did the patient sign up for the portal?: No CODE STATUS:: Full Code INSURANCE COVERAGE / FINANCIAL ISSUES:: BC BS [place] [employer] CURRENT HOME/COMMUNITY SERVICES/EQUIPMENT:: [facility] PRIMARY CARE PHYSICIAN:: [facility] POTENTIAL DISCHARGE NEEDS:: Follow up appointments, evaluation for further needs PATIENT/FAMILY EDUCATION NEEDS:: Review discharge instructions, limitations, medications and plan to follow up with community providers. Discuss ask me three and goals of self care. ANTICIPATED BARRIERS TO DISCHARGE:: None identified TRANSPORTATION:: Via private vehicle with son Jason PLAN:: Devin is being closely monitored and treated in the ICU. PT evaluation was deferred today due to hypotension, discharge recommendations to follow. PFSH All Active Problems (Updated 11/16/22 @ 17:50 by Lala Infante MD) Discharge planning issues (Acute) DVT prophylaxis (Acute) Enteritis (Acute) Perforated appendicitis (Acute) Septic shock (Acute) Diarrhea (Acute) Acute dehydration (Acute) Acute renal failure (Acute) Acute hyponatremia (Acute) Medical History (Updated 11/16/22 @ 17:50 by Lala Infante MD) Abdominal aortic aneurysm Atypical chest pain Cervical radiculopathy DJD (degenerative joint disease) Hearing loss Heart block HLD (hyperlipidemia) HTN (hypertension) Hx of radiation therapy Hypothyroidism Inguinal hernia Neoplasm Surgical History (Updated 11/16/22 @ 17:41 by Lala Infante MD) S/P placement of cardiac pacemaker Family History (Updated 11/16/22 @ 17:45 by Lala Infante MD) Father Heart disease Stroke Hypertension Son Diabetes Daughter Diabetes Sister Cancer breast cancer Social History (Updated 11/16/22 @ 17:46 by Lala Infante MD) Smoking/Tobacco Use Status: Former Tobacco Use Smoking risk assessment performed?: Yes Alcohol Intake: current Alcohol Intake frequency: a few times a month Alcohol type: wine Drug use: Never Substance use type: does not use Do you feel safe at home: Yes Do you feel safe in your relationship?: Yes
--- NOTE | 2022-11-17 09:16 | PGE_ITS ---
Date of Service Date of service: 11/17/22 Time of Service: 09:16 Assessment and Plan Assessment and plan (1) Septic shock: Status: Acute Assessment and plan: Suspect that this is in part a cause of the patient's hypotension. The source would likely be intraabdominal - bacterial enteritis. Surgery does not feel the patient has appendicitis clinically or radiologically. Hypotension is complicated by high UOP of what I suspect is diuresis phase of ATN due to hypotension at home. Blood cultures are negative to date. The patient was started empirically on vancomycin, ceftriaxone, flagyl. Continue norepinephrine and IVF, attempting to match Ins and Outs. Obtain MRSA nares. General surgery consulted for central line placement. (2) Acute renal failure: Status: Acute Assessment and plan: Prerenal + suspected component of ATN. Cr is improving. Is not concentrating urine - I think he is in the diuresis phase of ATN. Match Ins and outs. (3) Perforated appendicitis: Status: Ruled-out Assessment and plan: Per general surgery, the patient does not have appendicitis. (4) Enteritis: Status: Acute Assessment and plan: Await stool studies. Continue empiric abx. Tx with IV fluids, as above. (5) Acute dehydration: Status: Acute Assessment and plan: Match Ins and outs with IVF. (6) Acute hyponatremia: Status: Acute Assessment and plan: In setting of dehydration. Improving. Sodiums improving at an appropriate rate. Continue to trend. (7) DVT prophylaxis: Status: Acute Assessment and plan: SC heparin (8) Discharge planning issues: Status: Acute Assessment and plan: Full code as discussed with the patient. Keep in ICU. Total Critical Care Time 45 minutes. Subjective Subjective Interval history since last seen: Mr Kim had a potassium pill stuck in his throat, he felt, this morning. The sensation passed after he vomited it. Remains on norepinephrine. He does not have a central line. His UOP was 2900 cc in 12 hrs. No dizziness, CP, SOB, n/v now that he has brought up the pill. You do know half my heart is not working, right? When I went to see my heart doctor at [facility] 3 weeks ago, he told me my pacemaker was leaking, for me to get bloodwork now and then go to [facility] immediately. I told him I would want to go to [facility] because that's where I get all my care. Then they told me to wait for the result. Then they called me a week later to tell me everything is fine. That's why I came here and not to [place]. Awaiting echo this morning. Exam Narrative Exam Narrative: General: Pleasant elderly male who was gurgling on lilian yoana when trying to drink it; then vomited, and gurgling resolved. HEENT: ecchymosis over right eyebrow as above, EOMI, MMM; Cardiovascular: RRR, no m/r/g Lungs: CTAB Gastrointestinal: soft, nontender, nondistended, no peritoneal signs Genitourinary: has a parikh Extremities: no edema BLEs, +1 pedal pulses B Objective Last Vital Signs Temp 36.4 C L 11/17/22 07:36 Pulse 78 11/17/22 08:30 Resp 24 11/17/22 08:30 BP 106/68 11/17/22 08:30 Pulse Ox 97 11/17/22 08:30 Laboratory Results - last 24 hr 11/16/22 11/16/22 11/16/22 12:20 12:20 12:20 WBC 11.42 H RBC 4.37 Hgb 13.1 L Hct 36.8 L MCV 84 MCH 30.0 MCHC 35.6 RDW 12.6 Plt Count 550 H MPV 8.3 Immature Gran % 0.9 Neutrophils % 77.9 Lymphocytes % 12.8 Monocytes % 7.6 Eosinophils % 0.4 Basophils % 0.4 Nucleated RBC % 0.0 Absolute Neutrophils 8.90 H Absolute Lymphocytes 1.46 Absolute Monocytes 0.87 H Absolute Eosinophils 0.05 Absolute Basophils 0.05 VBG Lactate Sodium 120 L* Potassium 3.5 Chloride 77 L Carbon Dioxide 25.4 Anion Gap 17.6 H BUN 96 H* Creatinine 10.3 H* Est GFR (CKD-EPI 2020) 4.60 Glucose 141 H Calcium 8.6 Magnesium 2.2 Total Bilirubin 0.4 AST 9 L ALT 37 Alkaline Phosphatase 83 Creatine Kinase 365 H Total Protein 7.7 Albumin 3.3 L Lipase 43 Procalcitonin Urine Color Urine Clarity Urine pH Ur Specific [place] Urine Protein Urine Ketones Urine Blood Urine Nitrite Urine Bilirubin Urine Urobilinogen Ur Leukocyte Esterase Urine RBC Urine WBC Ur Epithelial Cells Urine Crystals Urine Bacteria Urine Casts Urine Mucus Urine Other Ur Culture Indicated? Ur Random Creatinine Ur Random Sodium Urine Glucose COVID-19 Source SARS-CoV-2 (PCR) Influenza Type A (PCR) Influenza Type B (PCR) RSV (PCR) 11/16/22 11/16/22 11/16/22 14:20 14:20 14:30 WBC RBC Hgb Hct MCV MCH MCHC RDW Plt Count MPV Immature Gran % Neutrophils % Lymphocytes % Monocytes % Eosinophils % Basophils % Nucleated RBC % Absolute Neutrophils Absolute Lymphocytes Absolute Monocytes Absolute Eosinophils Absolute Basophils VBG Lactate 1.9 H Sodium Potassium Chloride Carbon Dioxide Anion Gap BUN Creatinine Est GFR (CKD-EPI 2020) Glucose Calcium Magnesium Total Bilirubin AST ALT Alkaline Phosphatase Creatine Kinase Total Protein Albumin Lipase Procalcitonin 0.8 Urine Color Dark Yellow Urine Clarity Cloudy Urine pH 5.0 Ur Specific [place] 1.020 Urine Protein 30 H Urine Ketones Trace H Urine Blood Small H Urine Nitrite Negative Urine Bilirubin Negative Urine Urobilinogen 0.2 Ur Leukocyte Esterase Negative Urine RBC 5-10 H Urine WBC 3-5 Ur Epithelial Cells Negative Urine Crystals Few Amorphous Urine Bacteria Rare Urine Casts 0-2 Hyaline Urine Mucus Heavy Urine Other Few Renal Ur Culture Indicated? No Ur Random Creatinine Ur Random Sodium Urine Glucose Negative COVID-19 Source SARS-CoV-2 (PCR) Influenza Type A (PCR) Influenza Type B (PCR) RSV (PCR) 11/16/22 11/16/22 11/16/22 14:30 14:33 18:30 WBC RBC Hgb Hct MCV MCH MCHC RDW Plt Count MPV Immature Gran % Neutrophils % Lymphocytes % Monocytes % Eosinophils % Basophils % Nucleated RBC % Absolute Neutrophils Absolute Lymphocytes Absolute Monocytes Absolute Eosinophils Absolute Basophils VBG Lactate 0.8 Sodium Potassium Chloride Carbon Dioxide Anion Gap BUN Creatinine Est GFR (CKD-EPI 2020) Glucose Calcium Magnesium Total Bilirubin AST ALT Alkaline Phosphatase Creatine Kinase Total Protein Albumin Lipase Procalcitonin Urine Color Urine Clarity Urine pH Ur Specific [place] Urine Protein Urine Ketones Urine Blood Urine Nitrite Urine Bilirubin Urine Urobilinogen Ur Leukocyte Esterase Urine RBC Urine WBC Ur Epithelial Cells Urine Crystals Urine Bacteria Urine Casts Urine Mucus Urine Other Ur Culture Indicated? Ur Random Creatinine 94.56 Ur Random Sodium 29 Urine Glucose COVID-19 Source Nasopharynx SARS-CoV-2 (PCR) Negative Influenza Type A (PCR) Negative Influenza Type B (PCR) Negative RSV (PCR) Negative 11/16/22 11/17/22 11/17/22 18:30 00:10 05:40 WBC RBC Hgb Hct MCV MCH MCHC RDW Plt Count MPV Immature Gran % Neutrophils % Lymphocytes % Monocytes % Eosinophils % Basophils % Nucleated RBC % Absolute Neutrophils Absolute Lymphocytes Absolute Monocytes Absolute Eosinophils Absolute Basophils VBG Lactate Sodium 123 L* 123 L* 127 L Potassium 3.1 L 2.9 L 3.4 L Chloride 84 L 86 L 89 L Carbon Dioxide 21.5 22.5 23.4 Anion Gap 17.5 H 14.5 H 14.6 H BUN 90 H* 90 H* 86 H* Creatinine 9.0 H* 7.9 H* 7.0 H* Est GFR (CKD-EPI 2020) 5.41 6.33 7.32 Glucose 107 H 116 H 103 Calcium 7.3 L 7.4 L 7.9 L Magnesium 1.8 Total Bilirubin AST ALT Alkaline Phosphatase Creatine Kinase Total Protein Albumin Lipase Procalcitonin Urine Color Urine Clarity Urine pH Ur Specific [place] Urine Protein Urine Ketones Urine Blood Urine Nitrite Urine Bilirubin Urine Urobilinogen Ur Leukocyte Esterase Urine RBC Urine WBC Ur Epithelial Cells Urine Crystals Urine Bacteria Urine Casts Urine Mucus Urine Other Ur Culture Indicated? Ur Random Creatinine Ur Random Sodium Urine Glucose COVID-19 Source SARS-CoV-2 (PCR) Influenza Type A (PCR) Influenza Type B (PCR) RSV (PCR) 11/17/22 05:40 WBC 12.96 H RBC 4.15 L Hgb 12.5 L Hct 34.9 L MCV 84 MCH 30.1 MCHC 35.8 RDW 12.5 Plt Count 483 H MPV 8.5 Immature Gran % 0.8 Neutrophils % 82.4 Lymphocytes % 8.3 Monocytes % 7.8 Eosinophils % 0.4 Basophils % 0.3 Nucleated RBC % 0.0 Absolute Neutrophils 10.68 H Absolute Lymphocytes 1.08 L Absolute Monocytes 1.01 H Absolute Eosinophils 0.05 Absolute Basophils 0.04 VBG Lactate Sodium Potassium Chloride Carbon Dioxide Anion Gap BUN Creatinine Est GFR (CKD-EPI 2020) Glucose Calcium Magnesium Total Bilirubin AST ALT Alkaline Phosphatase Creatine Kinase Total Protein Albumin Lipase Procalcitonin Urine Color Urine Clarity Urine pH Ur Specific [place] Urine Protein Urine Ketones Urine Blood Urine Nitrite Urine Bilirubin Urine Urobilinogen Ur Leukocyte Esterase Urine RBC Urine WBC Ur Epithelial Cells Urine Crystals Urine Bacteria Urine Casts Urine Mucus Urine Other Ur Culture Indicated? Ur Random Creatinine Ur Random Sodium Urine Glucose COVID-19 Source SARS-CoV-2 (PCR) Influenza Type A (PCR) Influenza Type B (PCR) RSV (PCR) PAWSS Have you Been Recently Intoxicated or Drunk Within the Last 30 days?: No Have you Ever Experienced Previous Episodes of Alcohol Withdrawal?: No Have you ever Experienced Withdrawal Seizures?: No Have you ever Experienced Delirium Tremens(DT)s?: No Have you ever undergone Alcohol Rehabilitation Treatment (i.e, inpt ot outpatient treatment programs)?: No Have you ever Experienced Blackouts?: No Have you ever Combined Alcohol with other Downers within the last 90 days?: No Have you ever Combined Alcohol with any other Substance of Abuse during the last 90 days?: No Positive Blood Alcohol level on Presentation? [PCS.BAL]: No Evidence of Increased Autonomic Activity (i.e. 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
[2022-11-17 09:24] LABS: Lab Add On Test DONE
[2022-11-17 09:55] LABS: TSH 1.69 uIU/mL (0.36-3.74)
--- NOTE | 2022-11-17 10:13 | PT.INNT ---
PT Notes Visit Reasons: Dehydration,Hypotension,?septic shock Per Nurse's Monica, patient's low blood pressure is being managed at this time and may not be safe to be mobilized yet. Patient also has an echo scheduled for this morning. Will check in with patient later today to see if he is appropriate to be mobilized out of bed.
[2022-11-17 10:40] LABS: Vancomycin, Random 13.5 ug/mL
[2022-11-17] MEDS: POTASSIUM CHLORIDE 20 MEQ/100 ML BAG 50 MEQ IVPB (10:54)
[2022-11-17] MEDS: Perflutren Lipid Microspheres 1.5 ML VIAL IVP (11:58)
--- NOTE | 2022-11-17 12:23 | DI.RAD_ITS ---
Exam(s) XR PORTABLE CHEST AP POST LINE EXAM: XR PORTABLE CHEST AP POST LINE CLINICAL HISTORY: line insertion TECHNIQUE: 2D digital imaging was performed of the chest. One image was obtained. An AP view was ob tained. COMPARISON: No exams were available for comparison FINDINGS: MEDIASTINUM: Normal. HEART: Normal. The cardiac pacing device is in good position. PULMONARY VASCULATURE: Normal. LUNGS: Clear. PLEURAL SPACE: No pleural effusion or pneumothorax. BONE:Within normal limits for the patient's age. OTHER FINDINGS:There is a right IJ catheter. The tip of the catheter is in good position in the supe rior vena cava. IMPRESSION: 1. No acute pulmonary findings. 2. The tip of the right IJ catheter is in good position in the superior vena cava. DATA REPOSITORY: RADIATION DOSE DELIVERED:
--- NOTE | 2022-11-17 13:03 | W.PM.OP ---
Date of service: 11/17/22 Time of Service: 12:00 Operative Note Operative Note Refer to Anesthesia Record Procedure Description: Procedure performed: Ultrasound?guided Central line placement Indication: Patient on the medical service requiring pressors greater than 12 hours and needs central access for prolonged administration Permission: The patient gave both verbal and signed/written consent Blood loss: 1 cc Complications: None Procedure in detail: Compressible right internal jugular vein was identified. The right neck was prepped and draped in sterile fashion. The patient was placed in Trendelenburg. A timeout was performed by the nurse and when we were in agreement we began the procedure. Local anesthetic was injected under ultrasound guidance. In a typical fashion and under ultrasound visualization, needle access into the right internal jugular vein was performed. Access was successful with 1 stick only. Dark, non-pulsatile blood flow was confirmed. A guidewire was then passed easily and using Seldinger technique, the access was dilated and a central line catheter was placed without any difficulty or complication. All 3 ports flushed adequately without any resistance. A sterile dressing was placed on top. A postprocedural x-ray was ordered to confirm placement and rule out any complication(not suspected).
[2022-11-17] MEDS: Aspirin E.C. 81 MG TABEC PO (13:52)
--- NOTE | 2022-11-17 13:55 | W.SPSTE ---
Date of service: 11/17/22 Time of Service: 13:56 Subjective Clinical (Bedside) Swallow Evaluation Speech Language Pathology Patient referred for Clinical Swallow Evaluation from Dr Infante given observed episode with pharyngeal stasis of large pill followed by suspected aspiration event. Precautions: Fall, Blood pressure, Standard, Full code SUBJECTIVE: Patient received alert/awake, greeable to evaluation, able to communicate wants/needs effectively; able to demonstrate comprehension of recommendations for safe p.o. intake upon discharge once deemed medically stable.? Patient was accompanied by his family members who also participated in subjective and education. Patient & family report no baseline swallowing difficulties with denial of coughing with liquids, frequent sensation of pharyngeal stasis, heartburn/GERD symptoms (though he does report distant hx of heartburn). Prior to current illness no weight loss. No hx PNA, dysgeusia, odynophagia. He does report some difficulty chewing large complex bolus secondary to dentures, food can get stuck underneath, prefers soft/bite size diet at baseline. HPI: Pt is a 81 year old M with CAD s/p NSTEMI, CHF, admitted with septic shock, hypotension, dehydration likely in setting of enteritis. ? IMPRESSIONS Likely isolated event with large pills exacerbated by fatigue/weakness and dry mouth in setting of dehydration. Patient and nursing provided with recommendations for safest intake as below. Due to dentures, he prefers soft/bite size diet at baseline. Order placed for this diet after evaluation. PLAN Further REHAB TECH services: not warranted ? Instrumentation: N/A Diet Texture Modification(s): IDDSI Level(s) SOLIDS 6-Soft & Bite-Sized Solids LIQUIDS 0-Thin Liquids Medication Intake: Whole with 4-Extremely Thick Liquids and followed by 0-Thin Liquid wash, Crush large pills only as advised by MD or pharmacist. RISK MANAGEMENT: HOB upright as tolerated; upright for all PO intake. Encourage physical mobility as tolerated. Oral hygiene BID/2x per day, & before/after PO intake using friction with toothbrush on all oral structures as tolerated ? Level of Assistance/Supervision: Independent/Distant supervision PO intake only when awake/alert? Strategies/Adaptations/Assistive Equipment: Reduce auditory and/or visual distractions when eating Small sips and bites when eating Slow rate of intake Posture/Positioning Needs: Maintain upright position at least 30 minutes after meals Avoid meals/snacks 2-3 hours prior to reclining/sleeping Sleep with head of bed elevated to reduce likelihood of nocturnal reflux PFSH All Active Problems?(Updated 11/16/22 @ 17:50 by Lala Infante MD) Discharge planning issues (Acute) DVT prophylaxis (Acute) Enteritis (Acute) Perforated appendicitis (Acute) Septic shock (Acute) Diarrhea (Acute) Acute dehydration (Acute) Acute renal failure (Acute) Acute hyponatremia (Acute) Medical History?(Updated 11/16/22 @ 17:50 by Lala Infante MD) Abdominal aortic aneurysm Atypical chest pain Cervical radiculopathy DJD (degenerative joint disease) Hearing loss Heart block HLD (hyperlipidemia) HTN (hypertension) Hx of radiation therapy Hypothyroidism Inguinal hernia Neoplasm Surgical History?(Updated 11/16/22 @ 17:41 by Lala Infante MD) S/P placement of cardiac pacemaker ? OBJECTIVE: Sp02:97% Respiratory: room air Language: Grossly WFL Hearing: [place] requires repetitions Mental Status: Alert and Oriented to person, place, time, event Recall of current events intact, impaire Speech: WFL Cranial Nerve Exam: WFL for CN of swallowing Oral exam: partially edentulous (upper plate, not wearing at present) and dry oral mucosa with poor/fair oral care. ? [place] Swallow Protocol Results ? PASS: Complete/uninterrupted without s/sx aspiration ? Food items tested: ?? Ice: X IDDSI 0: IDDSI 1: IDDSI 2: IDDSI 3: X IDDSI 4: IDDSI 5: IDDSI 6: X IDDSI 7: X Pill/tablet: (small, with thin liquid) Oral phase: X WFL Pharyngeal phase: X WFL Provided education to: Patient, Family, Nursing Topics Addressed: anatomy/physiology of swallowing mechanism, overt s/sx to monitor for re: potential aspiration of food / liquids, recommendations for improved oral care, relationship between respiratory function changes and deglutition, Rationale for recommendations as outlined below Outcome: Verbalized/demonstrated understanding REHAB TECH CPT Code: 07363 Clinical Swallowing Evaluation 25 minutes Coding Diagnoses CPT Codes EVALUATE SWALLOWING FUNCTION - 75012 ([id number])
--- NOTE | 2022-11-17 13:56 | PT.INNT ---
Date of service: 11/17/22 Time of Service: 13:56 PT Notes Visit Reasons: Dehydration,Hypotension,?septic shock Patient remains hypotensive with recent BP measurement of high 60 to 70s sytolically per Nurse Priyanka and Nurse David. Will check in tomorrow morning to assess apporpriateness for PT, as ordered.
[2022-11-17] MEDS: VANCOMYCIN/WATER (PEG) 750 MG/150 ML BAG 150 MG IV (14:01)
[2022-11-17 15:58] LABS: Vancomycin, Peak 34.5 ug/mL (25.0-40.0)
[2022-11-17] MEDS: cefTRIAXone 2 GM/50 ML BAG IVPB (16:47)
[2022-11-17] MEDS: Norepinephrine in D5W 8 MG/250 ML BAG 18.75 MG IV (16:53)
[2022-11-17] MEDS: Normal Saline Flush 10 ML SYR IVP (19:05)
[2022-11-17] MEDS: Lactated Ringers 1,000 ML 1000 ML IV ×2 (19:08→21:38)
--- NOTE | 2022-11-17 19:21 | TELEP.MEDREC ---
Date of service: 11/17/22 Time of Service: 19:21 Telepharmacy Home Med Rec Allergies Allergies: No Known Allergies Allergy (Verified 04/09/22 08:32) Interview Person Interviewed: PATIENT Quality Quality of Interview/Accuracy of Medication List: Good Changes made to Home Medication List: ADDITIONS: JARDIANCE 10MG , ORSEMIDE 20MG RANOLAZINE 500MH LEVEOTHYROXINE 88MCG DELETIONS: LEVOTHYROXINE 75MCG CHANGES: ATORVASTATIN WAS INCREASED FROM 20MG TO 40MG LEVOTHYROXINE WAS INCREASED TO 88MCG FORM 75MCG Additional Notes Additional Notes: NONE Recommended Changes Recommended Changes(reason for recommendation): MPME Attestation: The home medication list is now updated to the best of my knowledge and is ready to be reconciled by the provider. Please contact the TelePharmacy Medication Reconciliation Pharmacist at for any questions.
[2022-11-17 19:36] LABS: Anion Gap 11.9 mmol/L (3-11); BUN 70 mg/dL (7-18); CO2 24.1 mmol/L (21.0-32.0); Calcium 7.7 mg/dL (8.5-10.1); Chloride 94 mmol/L (98-107); Estimated GFR 11.81 (mL/min/1.73m2); Glucose 166 mg/dL (74-106); Potassium 3.2 mmol/L (3.5-5.1); Sodium 130 mmol/L (136-145)
[2022-11-17 19:39] LABS: CREATININE 4.7 mg/dL (0.70-1.30)
[2022-11-17 22:10] LABS: C Diff PCR Negative (Negative)
[2022-11-17] MEDS: Heparin 5,000 UNITS/ML VIAL 5000 UNITS SC (22:22)
[2022-11-17] MEDS: Norepinephrine in D5W 8 MG/250 ML BAG 11.25 MG IV (22:22)
[2022-11-18] VITALS (138 sets, daily range): BP systolic 71–142; BP diastolic 36–88; PULSE 57–101; RESP 12–27; TEMP 36.3–37.1; O2SAT 94–100
[2022-11-18] MEDS: metroNIDAZOLE 500 MG/100 ML BAG 100 MG IVPB ×3 (02:51→18:42)
[2022-11-18] MEDS: Levothyroxine 75 MCG TAB PO (05:30)
[2022-11-18 06:42] LABS: Abs Immature Grans 0.09 10^3/uL (0.0-0.06); Absolute Basophil Count 0.04 10^3/uL (0.0-0.2); Absolute Eosinophil Count 0.15 10^3/uL (0.0-0.7); Absolute Lymphocyte Count 1.23 10^3/uL (1.2-3.4); Absolute Monocyte Count 0.75 10^3/uL (0.1-0.8); Absolute Neutrophil Count 7.54 10^3/uL (1.2-6.7); Basophils % 0.4; Eosinophils % 1.5; HCT 30.9 % (40.0-50.0); Immature Grans % 0.9; Lymphocytes % 12.6; MCH 30.1 pg (27.0-33.0); MCHC 35.6 % (32.0-36.0); MCV 85 fL (80-95); MPV 8.4 fL (8.0-11.0); Monocytes % 7.7; Neutrophils % 76.9; Platelet Count 435 10^3/uL (130-400); RBC 3.65 10^6/uL (4.36-5.78); RDW 12.7 % (11.8-14.1); RDW-SD 39.6 fL
[2022-11-18 07:09] LABS: Anion Gap 10.8 mmol/L (3-11); BUN 50 mg/dL (7-18); C-Reactive Protein 4.59 mg/dL (0.0-0.3); CO2 22.2 mmol/L (21.0-32.0); CREATININE 2.7 mg/dL (0.70-1.30); Calcium 6.9 mg/dL (8.5-10.1); Chloride 106 mmol/L (98-107); Estimated GFR 22.96 (mL/min/1.73m2); Glucose 99 mg/dL (74-106); Magnesium 1.8 mg/dL (1.8-2.4); Potassium 3.1 mmol/L (3.5-5.1); Sodium 139 mmol/L (136-145)
[2022-11-18] MEDS: Multivitamin w/Minerals TAB 1 TAB PO (08:51)
[2022-11-18] MEDS: Aspirin E.C. 81 MG TABEC PO (08:51)
[2022-11-18] MEDS: Atorvastatin 20 MG TAB PO (08:51)
--- NOTE | 2022-11-18 09:39 | CMPROGNOTE_ITS ---
Date of service: 11/18/22 Time of Service: 09:39 Care Management Progress Note Progress Note Text Progress Note Text: S/O: Devin is sitting in his chair when CM met with him. He is awake and easily engages in conversation. He is visiting with his daughter and . He continues to require close monitoring and treatment. Cardiology records from [facility] are requested by CM. CM will follow. A: 81 year old male admitted to [facility] on 11/16/22 for Dehydration, Hypote nsion,?septic shock P: Devin is being closely monitored and treated in the ICU. Outpatient PT is recommended per PT evaluation. Anticipate, Devin will discharge home with no new services when medically ready for discharge per provider.
[2022-11-18 10:34] LABS: Vancomycin, Random 15.3 ug/mL
--- NOTE | 2022-11-18 11:22 | IN_ITS ---
Date of service: 11/18/22 Time of Service: 10:50 PT Notes Visit Reasons: Dehydration,Hypotension,?septic shock Inpatient Physical Therapy Evaluation Date: 11/18/22 Referring Doctor: Lala Infante MD PT Orders: PT CONSULT: Limited ability Precautions: Standard, fall risk Patient Profile/Admitting Diagnosis: H&P review: 81 year old male with PMHx of CAD s/p NSTEMI and w/ h/o chronic total occlusion of LAD per cardiac cath at [facility] in June, as well as h/o CHF, complete heart block s/p pacemaker, AAA, hyperlipidemia, hypothyroidism, who presented to [facility] ED at the recommendation of his PCP after having watery diarrhea x 1 week. He did notice that he was becoming weaker, had stumbled on his feet without LOC a couple of days ago hitting his R forehead on the wall, and has been using a walker to ambulate. Medical work up has confirmed enteritis, septic shock, and resulting dehydration and low blood pressure difficulty. His blood pressure has become more stable with medication assist, and is now appropriate for PT evaluation. PMHX:All Active Problems?(Updated 11/16/22 @ 17:50 by Lala Infante MD) Discharge planning issues (Acute) DVT prophylaxis (Acute) Enteritis (Acute) Perforated appendicitis (Acute) Septic shock (Acute) Diarrhea (Acute) Acute dehydration (Acute) Acute renal failure (Acute) Acute hyponatremia (Acute) Medical History?(Updated 11/16/22 @ 17:50 by Lala Infante MD) Abdominal aortic aneurysm Atypical chest pain Cervical radiculopathy DJD (degenerative joint disease) Hearing loss Heart block HLD (hyperlipidemia) HTN (hypertension) Hx of radiation therapy Hypothyroidism Inguinal hernia Neoplasm Surgical History?(Updated 11/16/22 @ 17:41 by Lala Infante MD) S/P placement of cardiac pacemaker Social History/Home Situation: Lives in a private 2 story home, with his . He has 4 stairs to enter with bilateral rails, and full flight of stairs in home has 2 rails. He does have a recliner her can sleep in in living room, with a bathroom on first and second floors. He has slept in recliner before, so this is a realistic accommodation if needed until he can achieve stairs to second floor. Prior to admission he was independent with all ADL', and doing higher level tasks such as weed wacking, mowing lawn, carrying objects on all terrain and upstairs, limited to 10# weight limitation due to heart condition. He did not use an assistive device, only used a walker x 2 days prior to presentation to ER due to his weakness from illness. Current Functional Limitations: Dependent on RW for stabilization with dynamic standing, and STS movements to steady him. Fatigued, but improving. Close supervision for all transfers and dynamic movements Equipment Owned/DME: Walker Subjective: He has been up for 3 hours this morning sitting in chair, so he is tired. He has no pain. He has no symptoms of low blood pressure despite his vitals over the course of the last few days. He feels in need of walker assist due to his weakness at the current time. Objective: General Observation: Torres, telemetry, IV in place. Found lying recline in bed, with good color, appearing comfortable, good cognition. Mental Status: A & O x 3 Pain: 0/10 Vital Signs: BP 104/44, post rx 106/46. ROM: Right Upper Extremity: Grossly WNL Left Upper Extremity: Limited to 160 deg scapular movement w shoulder hike movement, movement similar to RC pathology. 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 WNL Left Upper Extremity: Genoveva flex 4/5 w shoulder hike, abd 4-/5 w shoulder hike, otherwise WNL Right Lower Extremity: Grossly 5/5 throughout Left Lower Extremity: Grossly 5/5 throughout Sensation: WNL Bed Mobility/Transfers: Bed mobility independent EOB to stand, RW, close supervision Stand to EOB, RW, close supervision STS <> from chair, close supervision with walker Gait: RW, in room distance, close supervision due to acute BP dysfunction, and weakness Balance: Static Sitting: Good Dynamic Sitting: Good Static Standing: Fair Dynamic Standing: Fair Stage 4 Balance Test Time (seconds) Feet together 10 Partial tandem 10 Tandem 5 One foot 2 Special Tests: Mobility Limitations Standardized Measure [facility]-PAC 6 clicks Basic Mobility Inpatient Short Form: 20% disability Informed Consent/Education: Patient instructed in purpose of PT consult and plan of care. Treatment: Therapeutic Procedures [id number] min: Skilled direction and guidance through functional based strengthening activities to reduce continued muscle wasting and weakness during hospitalization, and to progress to premorbid level of function. Access Code: [email or web address] URL: [email or web address] Date: 11/18/2022 Prepared by: Reema Cordero Exercises - Supine Bridge - 1 x daily - 7 x weekly - 3 sets - 10 reps - Small Range Straight Leg Raise - 1 x daily - 7 x weekly - 3 sets - 10 reps - Seated Long Arc Quad - 1 x daily - 7 x weekly - 3 sets - 10 reps - Standing Heel Raise with Support - 1 x daily - 7 x weekly - 3 sets - 10 reps - Standing March with Counter Support - 1 x daily - 7 x weekly - 3 sets - 10 reps - Sit to Stand with Armchair - 1 x daily - 7 x weekly - 3 sets - 10 reps Above added to HEP, patient provided with illustrated handout for in room use. He was advised to not complete any standing activities without someone present, due to BP fall risk. Assessment: Patient is a 81 year old male referred to physical therapy services due to limited ability post admission for enteritis, septic shock with resulting dehydration and low BP and now weakness limiting his ability to functional at pre-illness status. Patient presents with with poor balance and global weakness, allowing for functional deficits of unsteady gait, transfers, need for RW for ambulation and transfers and close supervision. This is dramatic functional decline compared to premorbid level of independent functioning, with no AD, and no unsteadiness prior to admission, demanding need for PT care. Patient is assessed as a Low 26131 complexity based on the following: History: See comorbidites Examination: See assessment Presentation: Stable for PT perspective Decision Making: Easy Goals: Goals X1 week 1. Supine-Sit independent 2. Sit-Supine independent 3. Sit-Stand independent 4. Stand-Sit independent 5. Bed-Chair independent 6. Chair-Bed independent 7. Gait 100 ft, no AD, independent 8. Stairs 4 with bilateral rails, supervision 9. Independent with home exercise program 10. Balance - steady with dynamic standing and ambulation without AD Plan of Care/Treatment Plan: 1-2x/day, 7 days/week x 1 week. Plan of care has been reviewed with the PUBLIC HEALTH SERVICE OFFICER providing the service under Physical Therapy direction. Initiate Physical Therapy intervention for strengthening, bed mobility, transfers, gait, stairs, balance training, use of assistive device. DISCHARGE RECOMMENDATIONS: Home with no services w outpatient PT rehabilitation to attend to anticipate weakness and endurance loss post illness TREATMENT CODE/TIME: 46273, [id number], 32 minutes
[2022-11-18 11:40] LABS: Lab Add On Test DONE
[2022-11-18] MEDS: Heparin 5,000 UNITS/ML VIAL 5000 UNITS SC ×2 (11:59→21:11)
[2022-11-18] MEDS: Normal Saline 500 ML 10 ML IV (12:00)
[2022-11-18] MEDS: POTASSIUM CHLORIDE 10 MEQ/100 ML BAG 100 MEQ IVPB ×3 (12:01→14:22)
--- NOTE | 2022-11-18 12:06 | PHA.REVIEW2 ---
Pharmacy Admission Review - Admission Clinical Review (Last Reviewed 11/16/22 @ 13:48 by Yonas Christensen MD) Discharge planning issues (Acute) DVT prophylaxis (Acute) Enteritis (Acute) Septic shock (Acute) Diarrhea (Acute) Acute dehydration (Acute) Acute renal failure (Acute) Acute hyponatremia (Acute) No Known Allergies Allergy (Verified 04/09/22 08:32) Resuscitation Status Full Code Height 5 ft 5 in Weight 62 kg - Comments Comments/Follow Ups: Empiric antibiotic coverage started for enteritis -- ceftriaxone + metronidazole + vanco - Renal Dosing Renal Dosing: BUN 50 mg/dL (7-18) H 11/18/22 05:20 Creatinine 2.7 mg/dL (0.70-1.30) H D 11/18/22 05:20 Medications needing adjustments: Reviewed (eCrCl 18 ml/min, current orders ok) - Anticoagulation Anticoagulation: Hgb 11.0 g/dL (13.5-17.5) L 11/18/22 05:20 Hct 30.9 % (40.0-50.0) L 11/18/22 05:20 Plt Count 435 10^3/uL (130-400) H 11/18/22 05:20 Creatinine 2.7 mg/dL (0.70-1.30) H D 11/18/22 05:20 DVT Prophylaxis: Reviewed Medications: Heparin - Opiate Usage Evaluate Pain Scale/Pains Meds: N/A - Relevant Labs Sodium 139 mmol/L (136-145) 11/18/22 05:20 Potassium 3.1 mmol/L (3.5-5.1) L 11/18/22 05:20 Chloride 106 mmol/L (98-107) 11/18/22 05:20 Magnesium 1.8 mg/dL (1.8-2.4) 11/18/22 05:20 C-Reactive Protein 4.59 mg/dL (0.0-0.3) H 11/18/22 05:20 Electrolytes, C-Reactive P, ESR: Reviewed (potassium being repleted via IV today) - DM Control DM Control: Glucose 99 mg/dL (74-106) 11/18/22 05:20 DM Control: N/A - Cardiac Review BP, HR, EF%: Reviewed (norepi gtt continues -- will add PO midodrine today and attempt to wean) - Qtc Review QTc: Reviewed (QTc 512 on admission, will watch for addition of meds that increase risk or prolongation) - IV to PO Switch IV Medications: Reviewed - Home Meds Home Med List reviewed: Reviewed Relevent Home Meds Not ordered & why?: not ordered: ascorbin acid, jardiance, metoprolol (requiring pressors), ranolazine, torsemide - Current meds Current Medication Order Review: Reviewed (Empiric abx coverage = ceftriazone + metronidazole + vanco for septic shock, possibly bacterial or viral enteritis -- awaiting stool studies; surgery has ruled out appendicitis) - Comments Comments/Follow Ups: MRSA screen is pending
[2022-11-18 12:34] LABS: Procalcitonin 0.1 ng/mL
[2022-11-18] MEDS: Midodrine 2.5 MG TAB PO (13:16)
[2022-11-18] MEDS: VANCOMYCIN 500 MG in Normal Saline 100 ML 100 MG IV (14:24)
--- NOTE | 2022-11-18 14:45 | W.PM.PROGNOT ---
Date of Service Date of service: 11/18/22 Time of Service: 14:45 Assessment and Plan Assessment and plan (1) Septic shock: Status: Acute Assessment and plan: Suspect that this is in part a cause of the patient's hypotension. The source would likely be intraabdominal - bacterial enteritis. Surgery does not feel the patient has appendicitis clinically or radiologically. Hypotension is complicated by high UOP of what I suspect is diuresis phase of ATN due to hypotension at home. Blood cultures are negative to date. MRSA screen pending. The patient continues empirically on vancomycin, ceftriaxone, flagyl. Continue norepinephrine and IVF, attempting to match Ins and Outs. Initiated midodrine 2.5mg BID to assist in pressure support and efforts to wean off norepinephrine. Central line in place. (2) Acute renal failure: Status: Acute Assessment and plan: Prerenal + suspected component of ATN. Cr is improvin.3 >>> 2.7. Is not concentrating urine - appears to be in the diuresis phase of ATN. Match Ins and outs with prn boluses of IV fluids. (3) Perforated appendicitis: Status: Ruled-out Assessment and plan: Per general surgery, the patient does not have appendicitis. (4) Enteritis: Status: Acute Assessment and plan: Await stool studies; c.diff neg, camylobacter, salmonella and shigella pending. Continue empiric abx. Continues to have loose stools; prn lomotil added. Tx with IV fluids, as above. (5) Acute dehydration: Status: Acute Assessment and plan: Match Ins and outs with IVF. (6) Acute hyponatremia: Status: Acute Assessment and plan: In setting of dehydration. Now normalized. (7) DVT prophylaxis: Status: Acute Assessment and plan: SC heparin (8) Discharge planning issues: Status: Acute Assessment and plan: Full code as discussed with the patient. Keep in ICU. Subjective Subjective Patient reports: no new complaints, feels better, tolerating a regular diet and afebrile; denies nausea, vomiting or shortness of breath Exam Narrative Exam Narrative: General: Pleasant elderly male. Sitting up in bed. Pleasant and conversant. HEENT: ecchymosis over right eyebrow. MMM Cardiovascular: RRR, no murmur Lungs: CTAB Gastrointestinal: soft, nontender, nondistended. Genitourinary: Torres catheter in place. Extremities: no edema BLEs, no calf tenderness. Objective Last Vital Signs Temp 36.6 C 11/18/22 11:00 Pulse 59 L 11/18/22 13:46 Resp 15 11/18/22 13:50 BP 116/52 L 11/18/22 13:46 Pulse Ox 99 11/18/22 13:50 Laboratory Results - last 24 hr 11/17/22 11/17/22 11/17/22 15:35 19:15 20:44 WBC RBC Hgb Hct MCV MCH MCHC RDW Plt Count MPV Immature Gran % Neutrophils % Lymphocytes % Monocytes % Eosinophils % Basophils % Nucleated RBC % Absolute Neutrophils Absolute Lymphocytes Absolute Monocytes Absolute Eosinophils Absolute Basophils Sodium 130 L Potassium 3.2 L Chloride 94 L Carbon Dioxide 24.1 Anion Gap 11.9 H BUN 70 H Creatinine 4.7 H* D Est GFR (CKD-EPI 2020) 11.81 Glucose 166 H Calcium 7.7 L Magnesium C-Reactive Protein Procalcitonin Stl C.difficile Tox PCR Negative Vancomycin Peak 34.5 Random Vancomycin Add-On Test Request 11/18/22 11/18/22 11/18/22 05:20 05:20 08:50 WBC 9.80 RBC 3.65 L Hgb 11.0 L Hct 30.9 L MCV 85 MCH 30.1 MCHC 35.6 RDW 12.7 Plt Count 435 H MPV 8.4 Immature Gran % 0.9 Neutrophils % 76.9 Lymphocytes % 12.6 Monocytes % 7.7 Eosinophils % 1.5 Basophils % 0.4 Nucleated RBC % 0.0 Absolute Neutrophils 7.54 H Absolute Lymphocytes 1.23 Absolute Monocytes 0.75 Absolute Eosinophils 0.15 Absolute Basophils 0.04 Sodium 139 Potassium 3.1 L Chloride 106 Carbon Dioxide 22.2 Anion Gap 10.8 BUN 50 H Creatinine 2.7 H D Est GFR (CKD-EPI 2020) 22.96 Glucose 99 Calcium 6.9 L Magnesium 1.8 C-Reactive Protein 4.59 H Procalcitonin Stl C.difficile Tox PCR Vancomycin Peak Random Vancomycin 15.3 Add-On Test Request 11/18/22 11/18/22 08:50 08:50 WBC RBC Hgb Hct MCV MCH MCHC RDW Plt Count MPV Immature Gran % Neutrophils % Lymphocytes % Monocytes % Eosinophils % Basophils % Nucleated RBC % Absolute Neutrophils Absolute Lymphocytes Absolute Monocytes Absolute Eosinophils Absolute Basophils Sodium Potassium Chloride Carbon Dioxide Anion Gap BUN Creatinine Est GFR (CKD-EPI 2020) Glucose Calcium Magnesium C-Reactive Protein Procalcitonin 0.1 Stl C.difficile Tox PCR Vancomycin Peak Random Vancomycin Add-On Test Request DONE PAWSS Have you Been Recently Intoxicated or Drunk Within the Last 30 days?: No Have you Ever Experienced Previous Episodes of Alcohol Withdrawal?: No Have you ever Experienced Withdrawal Seizures?: No Have you ever Experienced Delirium Tremens(DT)s?: No Have you ever undergone Alcohol Rehabilitation Treatment (i.e, inpt ot outpatient treatment programs)?: No Have you ever Experienced Blackouts?: No Have you ever Combined Alcohol with other Downers within the last 90 days?: No Have you ever Combined Alcohol with any other Substance of Abuse during the last 90 days?: No Positive Blood Alcohol level on Presentation? [PCS.BAL]: No Evidence of Increased Autonomic Activity (i.e. HR>120, tremor, sweating, agitation, nausea)?: No Result: 0 Time Spent with Patient Time Spent with Patient: 25-34 minutes Time was spent: preparing to see the patient(eg.review tests), obtaining and/or reviewing separately otained hiistory, ordering medications,tests, procedures, referring, communicating with other health companion caregiver, indepentently interpreting results and care coordination
[2022-11-18] MEDS: Normal Saline Flush 10 ML SYR IVP ×2 (15:24→16:54)
[2022-11-18] MEDS: cefTRIAXone 2 GM/50 ML BAG IVPB (15:52)
[2022-11-18] MEDS: Norepinephrine in D5W 8 MG/250 ML BAG 15 MG IV (18:33)
[2022-11-18] MEDS: Midodrine 2.5 MG TAB 5 MG PO (19:35)
[2022-11-18] MEDS: Acetaminophen 325 MG TAB PO (21:28)
[2022-11-18] MEDS: diphenhydrAMINE 25 MG CAP PO (21:28)
[2022-11-18 23:14] LABS: Campylobacter PCR Negative (Negative); Shiga Toxin PCR Negative (Negative); Shigella/Enteroinvasive Ecoli Negative (Negative)
[2022-11-19] VITALS (77 sets, daily range): BP systolic 81–135; BP diastolic 38–92; PULSE 59–98; RESP 11–25; TEMP 36.7–37.3; O2SAT 95–100
[2022-11-19] MEDS: metroNIDAZOLE 500 MG/100 ML BAG 100 MG IVPB ×2 (01:25→10:15)
[2022-11-19] MEDS: Levothyroxine 75 MCG TAB PO (05:52)
[2022-11-19 06:42] LABS: Abs Immature Grans 0.11 10^3/uL (0.0-0.06); Absolute Basophil Count 0.06 10^3/uL (0.0-0.2); Absolute Eosinophil Count 0.28 10^3/uL (0.0-0.7); Absolute Lymphocyte Count 1.83 10^3/uL (1.2-3.4); Absolute Monocyte Count 0.55 10^3/uL (0.1-0.8); Absolute Neutrophil Count 5.69 10^3/uL (1.2-6.7); Basophils % 0.7; Eosinophils % 3.3; HCT 31.6 % (40.0-50.0); HGB 10.8 g/dL (13.5-17.5); Immature Grans % 1.3; Lymphocytes % 21.5; MCH 30.1 pg (27.0-33.0); MCHC 34.2 % (32.0-36.0); MCV 88 fL (80-95); MPV 8.6 fL (8.0-11.0); Monocytes % 6.5; Neutrophils % 66.7; Platelet Count 411 10^3/uL (130-400); RBC 3.59 10^6/uL (4.36-5.78); RDW 12.9 % (11.8-14.1); RDW-SD 41.3 fL; WBC 8.52 10^3/uL (4.4-10.8)
[2022-11-19 06:59] LABS: ALT 19 U/L (16-63); AST 13 U/L (15-37); Albumin 2.2 g/dL (3.4-5.0); Alkaline Phosphatase 52 U/L (46-116); Anion Gap 8.1 mmol/L (3-11); BUN 36 mg/dL (7-18); Bilirubin, Total 0.2 mg/dL (0.2-1.0); CO2 24.9 mmol/L (21.0-32.0); CREATININE 1.6 mg/dL (0.70-1.30); Chloride 106 mmol/L (98-107); Estimated GFR 43.02 (mL/min/1.73m2); Glucose 98 mg/dL (74-106); Potassium 3.9 mmol/L (3.5-5.1); Sodium 139 mmol/L (136-145); Total Protein 5.6 g/dL (6.4-8.2)
--- NOTE | 2022-11-19 07:32 | CMPROGNOTE_ITS ---
Date of service: 11/19/22 Time of Service: 07:32 Care Management Progress Note Progress Note Text Progress Note Text: S/O: Devin continues to require close monitoring and treatment in the ICU. TIMO spoke with Augustina from [facility] Medical and his Cardiology records requested yesterday were mailed. TIMO is expecting a fax with most recent records. CM will follow.? A: 81 year old male admitted to [facility] on 11/16/22 for Dehydration, Hypotension,?septic shock P: Devin is being closely monitored and treated in the ICU. Outpatient PT is recommended per PT evaluation.? Anticipate, Devin will discharge home with no new services when medically ready for discharge per provider.
[2022-11-19] MEDS: Midodrine 2.5 MG TAB 5 MG PO ×3 (08:17→20:20)
[2022-11-19] MEDS: Atorvastatin 20 MG TAB PO (08:17)
[2022-11-19] MEDS: Multivitamin w/Minerals TAB 1 TAB PO (08:17)
[2022-11-19] MEDS: Aspirin E.C. 81 MG TABEC PO (08:18)
[2022-11-19] MEDS: Heparin 5,000 UNITS/ML VIAL 5000 UNITS SC ×2 (10:14→20:45)
[2022-11-19] MEDS: Normal Saline 250 ML IV ×2 (11:07→15:33)
--- NOTE | 2022-11-19 11:08 | PT.INNT ---
Date of service: 11/19/22 Time of Service: 11:02 PT Notes Visit Reasons: Dehydration,Hypotension,?septic shock Patient just got back to bed had been up since 8:00 am, needs a nap. Come back in the afternoon.
[2022-11-19 13:09] LABS: Salmonella PCR Positive (Negative)
--- NOTE | 2022-11-19 14:13 | PGE_ITS ---
Date of Service Date of service: 11/19/22 Time of Service: 14:13 Assessment and Plan Assessment and plan (1) Septic shock: Status: Acute Assessment and plan: Resolving; continues to require low dose norepinephrine. Now also on midodrine. PRN fluid boluses. Normal WBC count and normal mentation. (2) Acute renal failure: Status: Acute Assessment and plan: Prerenal + suspected component of ATN. Cr is improvin.3 >>> 1,6, Is not concentrating urine - appears to be in the diuresis phase of ATN. Match Ins and outs with prn boluses of IV fluids. (3) Perforated appendicitis: Status: Ruled-out Assessment and plan: Per general surgery, the patient does not have appendicitis. (4) Enteritis: Status: Acute Assessment and plan: Now known salmonellosis. Self-limiting infection. Stop antibiotics. BP improving but still on low dose norepi. Increased midodrine dosage yesterday. IV fluid boluses prn. Intake has improved. Lomotil prn. (5) Acute dehydration: Status: Acute Assessment and plan: Match Ins and outs with IVF. (6) Acute hyponatremia: Status: Acute Assessment and plan: In setting of dehydration. Now normalized. (7) DVT prophylaxis: Status: Acute Assessment and plan: SC heparin (8) Discharge planning issues: Status: Acute Assessment and plan: Full code as discussed with the patient. Keep in ICU. Subjective Subjective Patient reports: no new complaints, feels better and afebrile; denies blood in stool, nausea, vomiting or shortness of breath Interval history since last seen: Loose stools Exam Narrative Exam Narrative: General: Pleasant elderly male. Sitting up in bed. Pleasant and conversant. HEENT: ecchymosis over right eyebrow. MMM Cardiovascular: RRR, no murmur Lungs: CTAB Gastrointestinal: soft, nontender, nondistended. Genitourinary: Torres catheter in place. Extremities: no edema BLEs, no calf tenderness. Objective Last Vital Signs Temp 36.8 C 11/19/22 13:17 Pulse 78 11/19/22 12:31 Resp 15 11/19/22 12:31 BP 81/45 L 11/19/22 12:31 Pulse Ox 98 11/19/22 12:31 Laboratory Results - last 24 hr 0611/19/22 11/19/22 20:44 05:30 05:30 WBC 8.52 RBC 3.59 L Hgb 10.8 L Hct 31.6 L MCV 88 MCH 30.1 MCHC 34.2 RDW 12.9 Plt Count 411 H MPV 8.6 Immature Gran % 1.3 Neutrophils % 66.7 Lymphocytes % 21.5 Monocytes % 6.5 Eosinophils % 3.3 Basophils % 0.7 Nucleated RBC % 0.0 Absolute Neutrophils 5.69 Absolute Lymphocytes 1.83 Absolute Monocytes 0.55 Absolute Eosinophils 0.28 Absolute Basophils 0.06 Sodium 139 Potassium 3.9 Chloride 106 Carbon Dioxide 24.9 Anion Gap 8.1 BUN 36 H Creatinine 1.6 H D Est GFR (CKD-EPI 2020) 43.02 Glucose 98 Calcium 8.0 L Total Bilirubin 0.2 AST 13 L ALT 19 Alkaline Phosphatase 52 Total Protein 5.6 L Albumin 2.2 L Stool Campylobacter PCR Negative Stool Salmonella PCR Positive A Stool Shigella PCR Negative Shiga Toxin (PCR) Negative PAWSS Have you Been Recently Intoxicated or Drunk Within the Last 30 days?: No Have you Ever Experienced Previous Episodes of Alcohol Withdrawal?: No Have you ever Experienced Withdrawal Seizures?: No Have you ever Experienced Delirium Tremens(DT)s?: No Have you ever undergone Alcohol Rehabilitation Treatment (i.e, inpt ot outpatient treatment programs)?: No Have you ever Experienced Blackouts?: No Have you ever Combined Alcohol with other Downers within the last 90 days?: No Have you ever Combined Alcohol with any other Substance of Abuse during the last 90 days?: No Positive Blood Alcohol level on Presentation? [PCS.BAL]: No Evidence of Increased Autonomic Activity (i.e. HR>120, tremor, sweating, agitation, nausea)?: No Result: 0 Time Spent with Patient Time Spent with Patient: 25-34 minutes Time was spent: preparing to see the patient(eg.review tests), obtaining and/or reviewing separately otained hiistory, ordering medications,tests, procedures, referring, communicating with other health medicare sales executive, indepentently interpreting results and counseling the patient
--- NOTE | 2022-11-19 15:35 | PTTR_ITS ---
Date of service: 11/19/22 Time of Service: 14:17 PT Notes Visit Reasons: Dehydration,Hypotension,?septic shock Inpatient Physical Therapy Treatment Note [facility] Date: 11/19/22 PRECAUTIONS: Fall, standard, activity as tolerated. SUBJECTIVE: Patient has 2 family members visiting, is supine in bed, agreeable to therapy. Family members leave. OBJECTIVE: PAIN: none reported BED MOBILITY/TRANSFERS Rolling L/R: independent Supine-sit: independent Sit-supine: independent Sit-stand: independent Stand-sit: independent THEREX: Supine: Straight leg raises x5 bilaterally, heel slides x5 bilaterally, bridges x5. Seated: 1x5 each long arc quads, heel raises, toe raises, marching, adduction against pillow with 3 second hold, abduction against therapist manual resistance, hamstring curl against therapist manual resistance. Standinx5 heel raises, mini squats, 2x10 marching. Neuro: Patient able to stand unsupported with feet together, in tandem stance each side, in single leg stance each side for >10 seconds with eyes open and C GA. ASSESSMENT: Patient tolerates therapy well, feels as though he has worked hard PLAN: Continue strengthening per plan of care TREATMENT CODE/TIME: 40544 Ther Ex 24 minutes beginning at 1417
[2022-11-19] MEDS: Norepinephrine in D5W 8 MG/250 ML BAG 6.563 MG IV (20:20)
[2022-11-19] MEDS: Acetaminophen 325 MG TAB PO (20:41)
[2022-11-20] VITALS (122 sets, daily range): BP systolic 80–140; BP diastolic 38–62; PULSE 59–120; RESP 13–28; TEMP 37–37.7; O2SAT 96–99
[2022-11-20] MEDS: Levothyroxine 75 MCG TAB PO (05:44)
[2022-11-20 06:38] LABS: Anion Gap 6.1 mmol/L (3-11); BUN 21 mg/dL (7-18); CO2 26.9 mmol/L (21.0-32.0); CREATININE 1.1 mg/dL (0.70-1.30); Calcium 8.1 mg/dL (8.5-10.1); Chloride 107 mmol/L (98-107); Estimated GFR 67.44 (mL/min/1.73m2); Glucose 101 mg/dL (74-106); Potassium 4.2 mmol/L (3.5-5.1); Sodium 140 mmol/L (136-145)
[2022-11-20] MEDS: Atorvastatin 20 MG TAB PO (07:53)
[2022-11-20] MEDS: Aspirin E.C. 81 MG TABEC PO (07:53)
[2022-11-20] MEDS: Multivitamin w/Minerals TAB 1 TAB PO (07:53)
[2022-11-20] MEDS: Midodrine 2.5 MG TAB 5 MG PO ×2 (07:53→08:56)
[2022-11-20] MEDS: Heparin 5,000 UNITS/ML VIAL 5000 UNITS SC ×2 (10:24→21:09)
--- NOTE | 2022-11-20 12:08 | PT.INTREAT ---
PT Notes Visit Reasons: Dehydration,Hypotension,?septic shock Inpatient Physical Therapy Treatment Note [facility] Date: 11/20/22 SUBJECTIVE: States he is feeling much better. Reports that he was up with his nurse this am, stood at the sink to get cleaned up, and then walked to nurse desk. OBJECTIVE: [] BED MOBILITY/TRANSFERS Supine-sit: S Sit-stand: S Stand-sit: S Bed-Chair: S Chair-bed: S GAIT Assistive Device: FWW Weight bearing:FWB Assist:SBA Distance: approx 75' Deviation: short strides THEREX: performed his HEP that was issued at time of IE. ASSESSMENT: tolerated session very well. No LOB noted, No SOB or fatigue. Nurse had some concerns with pt bp as it generally runs low, however he seems to respond to ex. PLAN: will continue to work on strength and endurance improving his functional mobility. Continue to monitor bp. TREATMENT CODE/TIME:15 min [id number]
--- NOTE | 2022-11-20 13:12 | W.PM.PROGNOT ---
Date of Service Date of service: 11/20/22 Time of Service: 13:12 Assessment and Plan Assessment and plan (1) Septic shock: Status: Acute Assessment and plan: Resolving; continues to require low dose norepinephrine. Now also on midodrine; dosage increased. He has received several intermittent fluid boluses; now his intake is adequate with improvement in matching I's and O's. Normal WBC count and normal mentation. (2) Acute renal failure: Status: Acute Assessment and plan: Prerenal + suspected component of ATN. Cr is improvin.3 >>> 1.1 (3) Enteritis: Status: Acute Assessment and plan: Now known salmonellosis. Self-limiting infection. Stopped antibiotics. BP improving but still on low dose norepi. Increased midodrine dosage to 10mg TID Lomotil prn. (4) Acute dehydration: Status: Acute Assessment and plan: Match Ins and outs with IVF. Resolved. (5) Acute hyponatremia: Status: Acute Assessment and plan: In setting of dehydration. Now normalized. (6) DVT prophylaxis: Status: Acute Assessment and plan: SC heparin (7) Discharge planning issues: Status: Acute Assessment and plan: Full code as discussed with the patient. Keep in ICU. Subjective Subjective Patient reports: no new complaints, feels better, tolerating a regular diet and afebrile; denies shortness of breath Interval history since last seen: No Exam Narrative Exam Narrative: General: Pleasant elderly male. Sitting up in bed. Pleasant and conversant. HEENT: MMM, sclera clear. Cardiovascular: RRR, no murmur Lungs: CTAB Gastrointestinal: soft, nontender, nondistended. Genitourinary: Torres catheter in place. Extremities: tr edema BLEs, no calf tenderness. Objective Last Vital Signs Temp 37.7 C H 11/20/22 08:04 Pulse 79 11/20/22 12:31 Resp 21 11/20/22 12:31 BP 109/54 L 11/20/22 12:31 Pulse Ox 99 11/20/22 10:17 Laboratory Results - last 24 hr 11/20/22 05:30 Sodium 140 Potassium 4.2 Chloride 107 Carbon Dioxide 26.9 Anion Gap 6.1 BUN 21 H Creatinine 1.1 Est GFR (CKD-EPI 2020) 67.44 Glucose 101 Calcium 8.1 L PAWSS Have you Been Recently Intoxicated or Drunk Within the Last 30 days?: No Have you Ever Experienced Previous Episodes of Alcohol Withdrawal?: No Have you ever Experienced Withdrawal Seizures?: No Have you ever Experienced Delirium Tremens(DT)s?: No Have you ever undergone Alcohol Rehabilitation Treatment (i.e, inpt ot outpatient treatment programs)?: No Have you ever Experienced Blackouts?: No Have you ever Combined Alcohol with other Downers within the last 90 days?: No Have you ever Combined Alcohol with any other Substance of Abuse during the last 90 days?: No Positive Blood Alcohol level on Presentation? [PCS.BAL]: No Evidence of Increased Autonomic Activity (i.e. HR>120, tremor, sweating, agitation, nausea)?: No Result: 0 Time Spent with Patient Time Spent with Patient: 25-34 minutes Time was spent: preparing to see the patient(eg.review tests), ordering medications,tests, procedures, referring, communicating with other health furnace caretaker, indepentently interpreting results and counseling the patient
[2022-11-20] MEDS: Midodrine 2.5 MG TAB 10 MG PO ×2 (14:03→19:18)
[2022-11-20] MEDS: Norepinephrine in D5W 8 MG/250 ML BAG 9.375 MG IV (19:16)
[2022-11-20] MEDS: Normal Saline Flush 10 ML SYR IVP (19:20)
[2022-11-21] VITALS (86 sets, daily range): BP systolic 72–128; BP diastolic 35–92; PULSE 59–117; RESP 10–30; TEMP 37–37.3; O2SAT 99–100
[2022-11-21] MEDS: Lactated Ringers 250 ML IV ×2 (00:31→06:31)
[2022-11-21] MEDS: Levothyroxine 75 MCG TAB PO (06:23)
[2022-11-21] MEDS: Aspirin E.C. 81 MG TABEC PO (09:02)
[2022-11-21] MEDS: Atorvastatin 20 MG TAB PO (09:02)
[2022-11-21] MEDS: Multivitamin w/Minerals TAB 1 TAB PO (09:02)
[2022-11-21] MEDS: Midodrine 2.5 MG TAB 10 MG PO ×3 (09:51→20:11)
[2022-11-21] MEDS: Heparin 5,000 UNITS/ML VIAL 5000 UNITS SC ×2 (09:51→21:34)
[2022-11-21] MEDS: Normal Saline 250 ML IV ×2 (11:27→13:27)
--- NOTE | 2022-11-21 12:09 | W.PM.PROGNOT ---
Date of Service Date of service: 11/21/22 Time of Service: 12:09 Assessment and Plan Assessment and plan (1) Septic shock: Status: Acute Assessment and plan: Improved but MAP continues to generally be in the 50's when norepinephrine stopped despite fluid boluses. He is, however, asymptomatic. Ambulates w/o lightheadedness. Cont midodrine 10mg TID. Add ALVAREZ stockings. Normal WBC count and normal mentation. (2) Acute renal failure: Status: Acute Assessment and plan: Prerenal + suspected component of ATN. Cr normalized: 10.3 >>> 1.1 (3) Enteritis: Status: Acute Assessment and plan: Now known salmonellosis. Self-limiting infection. Stopped antibiotics. Lomotil prn. (4) Acute dehydration: Status: Acute Assessment and plan: Resolved. Attempting match I's and O's to assist in pressure support. (5) Acute hyponatremia: Status: Acute Assessment and plan: In setting of dehydration. Now normalized. (6) DVT prophylaxis: Status: Acute Assessment and plan: SC heparin (7) Discharge planning issues: Status: Acute Assessment and plan: Full code as discussed with the patient. Keep in ICU. Subjective Subjective Patient reports: no new complaints, tolerating a regular diet and afebrile; denies nausea, vomiting or shortness of breath Interval history since last seen: Stool frequency significantly decreased; starting to form. Exam Narrative Exam Narrative: General: Pleasant elderly male. Sitting in chair. Pleasant and conversant. Eating breakfast. HEENT: MMM, sclera clear. Cardiovascular: RRR, no murmur Lungs: CTAB Gastrointestinal: soft, nontender, nondistended. Genitourinary: Torres catheter in place. Extremities: tr edema BLEs, no calf tenderness. Objective Last Vital Signs Temp 37.3 C 11/20/22 19:22 Pulse 86 11/21/22 12:01 Resp 23 11/21/22 12:01 BP 98/50 L 11/21/22 12:01 Pulse Ox 98 11/20/22 13:00 PAWSS Have you Been Recently Intoxicated or Drunk Within the Last 30 days?: No Have you Ever Experienced Previous Episodes of Alcohol Withdrawal?: No Have you ever Experienced Withdrawal Seizures?: No Have you ever Experienced Delirium Tremens(DT)s?: No Have you ever undergone Alcohol Rehabilitation Treatment (i.e, inpt ot outpatient treatment programs)?: No Have you ever Experienced Blackouts?: No Have you ever Combined Alcohol with other Downers within the last 90 days?: No Have you ever Combined Alcohol with any other Substance of Abuse during the last 90 days?: No Positive Blood Alcohol level on Presentation? [PCS.BAL]: No Evidence of Increased Autonomic Activity (i.e. HR>120, tremor, sweating, agitation, nausea)?: No Result: 0 Time Spent with Patient Time Spent with Patient: 25-34 minutes Time was spent: preparing to see the patient(eg.review tests), ordering medications,tests, procedures, referring, communicating with other health career services manager and indepentently interpreting results
--- NOTE | 2022-11-21 12:10 | PT.INTREAT ---
PT Notes Visit Reasons: Dehydration,Hypotension,?septic shock Inpatient Physical Therapy Treatment Note [facility] Date: 11/21/22 SUBJECTIVE: States he is feeling well. Willing and ready to walk. OBJECTIVE: [] BED MOBILITY/TRANSFERS Supine-sit: S Sit-stand: S Stand-sit: S Bed-Chair: S Chair-bed: S GAIT Assistive Device: FWW Weight bearing:FWB Assist:SBA Distance: approx 200' THEREX: LAQ, SLR, bridging x 10ea. ASSESSMENT: tolerated session very well. No LOB noted, No SOB or fatigue. Continues to have low bp, however continues to be asymptomatic. PLAN: will continue to work on strength and endurance improving his functional mobility.Add in sit to stand/squats next session. TREATMENT CODE/TIME:25 min [id number], [id number]
[2022-11-21] MEDS: Normal Saline Flush 10 ML SYR IVP (20:11)
[2022-11-22] VITALS (14 sets, daily range): BP systolic 86–104; BP diastolic 41–58; PULSE 62–106; RESP 18–23; TEMP 36.8–37.6
[2022-11-22] MEDS: Normal Saline Flush 10 ML SYR IVP (05:30)
[2022-11-22] MEDS: Levothyroxine 75 MCG TAB PO (05:53)
[2022-11-22 06:22] LABS: Abs Immature Grans 0.06 10^3/uL (0.0-0.06); Absolute Basophil Count 0.04 10^3/uL (0.0-0.2); Absolute Eosinophil Count 0.21 10^3/uL (0.0-0.7); Absolute Lymphocyte Count 1.66 10^3/uL (1.2-3.4); Absolute Monocyte Count 0.69 10^3/uL (0.1-0.8); Absolute Neutrophil Count 5.44 10^3/uL (1.2-6.7); Basophils % 0.5; Eosinophils % 2.6; HCT 27.4 % (40.0-50.0); HGB 9.2 g/dL (13.5-17.5); Immature Grans % 0.7; Lymphocytes % 20.5; MCH 30.3 pg (27.0-33.0); MCHC 33.6 % (32.0-36.0); MCV 90 fL (80-95); MPV 8.3 fL (8.0-11.0); Monocytes % 8.5; Neutrophils % 67.2; Platelet Count 272 10^3/uL (130-400); RBC 3.04 10^6/uL (4.36-5.78); RDW 14.6 % (11.8-14.1); RDW-SD 47.9 fL
[2022-11-22 06:44] LABS: Anion Gap 2.2 mmol/L (3-11); BUN 12 mg/dL (7-18); CO2 28.8 mmol/L (21.0-32.0); Chloride 108 mmol/L (98-107); Estimated GFR 75.61 (mL/min/1.73m2); Glucose 90 mg/dL (74-106); Potassium 4.7 mmol/L (3.5-5.1); Sodium 139 mmol/L (136-145)
[2022-11-22] MEDS: Heparin 5,000 UNITS/ML VIAL 5000 UNITS SC (09:32)
[2022-11-22] MEDS: Multivitamin w/Minerals TAB 1 TAB PO (09:34)
[2022-11-22] MEDS: Atorvastatin 20 MG TAB PO (09:34)
[2022-11-22] MEDS: Midodrine 2.5 MG TAB 10 MG PO (09:34)
[2022-11-22] MEDS: Aspirin E.C. 81 MG TABEC PO (09:34)
--- NOTE | 2022-11-22 10:19 | W.PM.PROGNOT ---
Date of Service Date of service: 11/22/22 Time of Service: 10:19 Assessment and Plan Assessment and plan (1) Septic shock: Status: Resolved Assessment and plan: Patient's been off vasopressors for 24 hours with stable blood pressure no symptoms of dizziness or lightheadedness when he gets up out of bed. (2) Acute renal failure: Status: Acute Assessment and plan: BUN/creatinine have normalized since yesterday. BUN remains normal at 12 creatinine 1.0. Patient is eating and drinking adequately with no diarrhea. (3) Enteritis: Status: Resolved Assessment and plan: No longer having diarrhea. No abdominal nausea or vomiting or pain. We will discharge him home today. (4) Acute dehydration: Status: Resolved Assessment and plan: IV fluids have now been stopped. BUN and creatinine normalized for 24 hours. Patient is tolerating his diet. (5) Acute hyponatremia: Status: Resolved Assessment and plan: Has been resolved since 11/18/2022 (6) DVT prophylaxis: Status: Acute Assessment and plan: SC heparin (7) Discharge planning issues: Status: Acute Assessment and plan: Patient no longer requires inpatient hospital management. He can be discharged home today. Subjective Subjective Interval history since last seen: patient was admitted to ICU on for sepsis d/t Salmonella infection. he was treated w/ Rocephin from 11/16 to 11/18. He required norepinephrine for pressure support through yesterday at noon. He has been off N.E. since noon yesterday. He feels fine, no fever, rigors, abdominal pains or diarrhea. Stools are soft but formed. Nursing took out his parikh this a.m. I will have them take out his right IJ cvc and he can be dc home later today. He has no idea where the Salmonella infection came from. 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 He does not consume raw milk and does not have chickens or other poultry at home. No raw meats. No ill contacts. Exam Narrative Exam Narrative: Patient sitting in his chair he is alert and oriented person place time circumstance Lungs are clear to auscultation Heart is regular rate and rhythm Abdomen soft nontender nondistended normal bowel sounds Extremities without edema or cyanosis. Objective Last Vital Signs Temp 37.0 C 11/22/22 09:43 Pulse 105 H 11/22/22 09:00 Resp 23 11/22/22 09:00 BP 90/49 L 11/22/22 09:00 Pulse Ox 100 11/21/22 20:30 Laboratory Results - last 24 hr 11/22/22 11/22/22 05:35 06:04 WBC 8.10 RBC 3.04 L Hgb 9.2 L Hct 27.4 L MCV 90 MCH 30.3 MCHC 33.6 RDW 14.6 H Plt Count 272 MPV 8.3 Immature Gran % 0.7 Neutrophils % 67.2 Lymphocytes % 20.5 Monocytes % 8.5 Eosinophils % 2.6 Basophils % 0.5 Nucleated RBC % 0.0 Absolute Neutrophils 5.44 Absolute Lymphocytes 1.66 Absolute Monocytes 0.69 Absolute Eosinophils 0.21 Absolute Basophils 0.04 Sodium 139 Potassium 4.7 Chloride 108 H Carbon Dioxide 28.8 Anion Gap 2.2 L BUN 12 Creatinine 1.0 Est GFR (CKD-EPI 2020) 75.61 Glucose 90 Calcium 8.0 L PAWSS Have you Been Recently Intoxicated or Drunk Within the Last 30 days?: No Have you Ever Experienced Previous Episodes of Alcohol Withdrawal?: No Have you ever Experienced Withdrawal Seizures?: No Have you ever Experienced Delirium Tremens(DT)s?: No Have you ever undergone Alcohol Rehabilitation Treatment (i.e, inpt ot outpatient treatment programs)?: No Have you ever Experienced Blackouts?: No Have you ever Combined Alcohol with other Downers within the last 90 days?: No Have you ever Combined Alcohol with any other Substance of Abuse during the last 90 days?: No Positive Blood Alcohol level on Presentation? [PCS.BAL]: No Evidence of Increased Autonomic Activity (i.e. HR>120, tremor, sweating, agitation, nausea)?: No Result: 0 Time Spent with Patient Time Spent with Patient: <25 minutes Time was spent: preparing to see the patient(eg.review tests), indepentently interpreting results, counseling the patient and care coordination
--- NOTE | 2022-11-22 10:35 | CMPROGNOTE_ITS ---
Date of service: 11/22/22 Time of Service: 10:35 Care Management Progress Note Progress Note Text Progress Note Text: S/O:? Devin was sitting in his chair when CM met with him. He is awake and easily engages in conversation. He states that he is feeling much better. Anticipate, pt will be discharged later today with outpt PT. CM will follow.? A: 81 year old male admitted to [facility] on 11/16/22 for Dehydration, Hypotension,?septic shock P: Devin is being closely monitored and treated in the ICU. Outpatient PT is recommended per PT evaluation.? Anticipate, Devin will discharge home with no new services when medically ready for discharge per provider.
--- NOTE | 2022-11-22 10:42 | DSE_ITS ---
Date of service: 11/22/22 Time of Service: 10:42 DS: Diagnosis Discharge Diagnosis (1) Septic shock: Status: Resolved (2) Acute renal failure: Status: Acute (3) Enteritis: Status: Resolved (4) Acute dehydration: Status: Resolved (5) Acute hyponatremia: Status: Resolved (6) DVT prophylaxis: Status: Acute (7) Discharge planning issues: Status: Acute Discharge Plan Disposition Patient Disposition: Home Condition: Improving Discharge Details Reason For Visit: Dehydration,Hypotension,?septic shock Admit Date/Time: 11/16/22 14:11 Admit Provider: Lala Infante Attending Provider: Lala Infante Primary Care Provider: Oc Moseley Hospital Course Hospital Course: 81 year old male with PMHx of CAD s/p NSTEMI and w/ h/o chronic total occlusion of LAD per cardiac cath at [facility] in June, as well as h/o CHF (unknown LVEF), complete heart block s/p pacemaker, AAA, hyperlipidemia, hypothyroidism, who presented to [facility] ED at the recommendation of his PCP after having watery diarrhea x 1 week. Patient presented to the ED w/ severe hypotension that did not respond to iv fluids necessitating intiation of norepinephrine. Labs demonstrated severe FELIPE from sepsis and dehydration w/ BUN 96 and creatinine of 10.3, and lactic acidosis. Blood and urine cultures were obtained and came back negative but stools eventually came back positive for Salmonella. Patient was treated w/ iv fluids, norepinephrine and ceftriaxone and flagyl. CT scan of abdomen and pelvis demonstrated small bowel thickening in the RLQ w/ thickening of the appendix and suggestion of extraluminal air raising concerns for perforated appendicitis. Surgical consult was obtained. Dr. Meek, surgical head banquet waiter/waitress examined the patient and reviewed the CT scan and he came to the conclusion that the patient's abdominal exam was benign and he indicated that there was no evidence for free air, presence of right inguinal hernia w/out incarceration, and non-specific inflammation of the small bowel. He placed a central line into the RIJV for infusion of vasopressors. Patient was kept on iv fluids and after being treated for 3 days w/ Ceftriaxone, and with negative blood cultures but positive stool for Salmonella, the patient improved. HIs FELIPE resolved by 11/20/22. At discharge his BUN and creatinine were down to 12 and 1.0. Acute metabolic acidosis had resolved by 11/18 with aggressive iv fluids and bp support. He completed ceftriaxone therapy on 11/19. He was weaned off norep inephrine on 11/21 after aggressive iv fluids. He was monitored for 24 hours after completion of vasopressors and did well. He had no further hypotension and was ambulating under his own power w/ use of FWW. he was discharged home in much improved condition. Follow up w/ his PCP in the next week. NO source of his Salmonella infection was discocvered. The RIJV CVC was removed on the day of his discharge. Patient did receive physical therapy however at discharge he was ambulating independently w/ use of FWW. Home Meds and New Rx's Prescriptions: No Action ascorbate calcium (vitamin C) 500 mg tablet 1 g PO DAILY metoprolol succinate 25 mg tablet extended release 24 hr 12.5 mg PO DAILY atorvastatin 20 mg tablet 40 mg PO DAILY aspirin [Adult Aspirin Regimen] 81 mg tablet,delayed release (DR/EC) 81 mg PO DAILY Centrum Silver 0.4 mg-300 mcg- 250 mcg tablet 1 tab PO DAILY torsemide 20 mg Tablet 20 mg PO DAILY levothyroxine 88 mcg Tablet 88 mcg PO QAM ranolazine 500 mg Tablet Extended Release 12 Hr 500 mg PO BID Jardiance 10 mg Tablet 10 mg PO DAILY Discharge Instructions Instructions: Salmonella Infection (GEN) Additional Instructions: avoid any raw or undercooked meats (especially poultry or eggs), avoid unprocessed milk or dairy. Avoid handling of live poulty Referrals: Oc Moseley [Primary Care Provider] - 11/30/22 1:00 pm () Activity:: Activity as Tolerated Equipment/Supplies:: No Equipment Needed Diet:: Low Sodium Discharge Orders Discharge Orders: Discharge Order (Routine); Ordered 11/22/22 Ordered By: Jason Canela Discharge Data Discharge Date/Time-TO BE ENTERED AT DEPARTURE: 11/22/22 12:40 Discharge Comment: Home DS: Summary Time Spent with Patient providing and/or coordinating discharge services: Less than 30 minutes Specific discharge activities: Interview/exam of patient; review of discharge instructions, completion of prescriptions/discharge instructions; discussion w/ nursing and CM; documentation of hospital visit Status at Discharge Functional status at discharge: independent ambulation Overall status at discharge: patient is back to baseline Mental Status: mental status grossly normal Speech and Movement: speech and movement normal Mood: congruent mood Affect: normal affect Exam Narrative Exam Narrative: Patient sitting in his chair he is alert and oriented person place time circumstance Lungs are clear to auscultation Heart is regular rate and rhythm Abdomen soft nontender nondistended normal bowel sounds Extremities without edema or cyanosis. Psych Mental Status: mental status grossly normal Speech and Movement: speech and movement normal Mood: congruent mood Affect: normal affect DS: Data Vitals/I&O Vitals and I&O: Vital Signs Temperature 37.0 C 11/22/22 09:43 Temperature Source Temporal Artery Scan 11/22/22 09:43 Pulse 105 H 11/22/22 09:00 Pulse 106 H 11/22/22 09:00 Respiratory Rate 23 11/22/22 09:00 Respiratory Effort Normal, Non-Labored 11/22/22 09:43 Respiratory Depth Normal 11/22/22 09:43 Respiratory Pattern Normal 11/22/22 09:43 Blood Pressure 90/49 L 11/22/22 09:00 Blood Pressure Mean 59 11/22/22 09:00 Blood Pressure Position Sitting 11/22/22 09:43 Pulse Oximetry 100 11/21/22 20:30 Oxygen Delivery Method Room Air 11/22/22 09:43 Oxygen Flow Rate 0 11/22/22 09:43 Fraction of Inspired Oxygen (FIO2) 96 11/20/22 03:34 Pain Level 0 11/22/22 09:43 Comment RN notified 11/16/22 20:35 Intake & Output 11/21/22 11/21/22 11/22/22 11:59 23:59 11:59 Intake Total 1783.281 / 3252.375 1169.094 / 3252.375 790 / 790 Output Total 950 / 3175 1375 / 3175 1700 / 1700 Balance 833.281 / 77.375 -205.906 / 77.375 -910 / -910 Weight 66.9 kg 68.8 kg Intake: IV 643.281 / 1212.375 569.094 / 1212.375 Oral 1140 / 2040 600 / 2040 790 / 790 Output: Urine 950 / 3175 1375 / 3175 1700 / 1700 Other: Urine Color Pale Yellow Yellow Yellow Straw Urine Appearance Clear Clear Clear Sediment Clots Comment Indwelling Torres catheter. Indwelling Torres catheter. Indwelling Torres catheter. Stool Size Moderate Moderate Stool Characteristics Brown Soft Data Completed and Pending Labs on day of discharge: Labs from last 24 hours 11/22/22 11/22/22 06:04 05:35 WBC 8.10 RBC 3.04 L Hgb 9.2 L Hct 27.4 L MCV 90 MCH 30.3 MCHC 33.6 RDW 14.6 H Plt Count 272 MPV 8.3 Immature Gran % 0.7 Neutrophils % 67.2 Lymphocytes % 20.5 Monocytes % 8.5 Eosinophils % 2.6 Basophils % 0.5 Nucleated RBC % 0.0 Absolute Neutrophils 5.44 Absolute Lymphocytes 1.66 Absolute Monocytes 0.69 Absolute Eosinophils 0.21 Absolute Basophils 0.04 Sodium 139 Potassium 4.7 Chloride 108 H Carbon Dioxide 28.8 Anion Gap 2.2 L BUN 12 Creatinine 1.0 Est GFR (CKD-EPI 2020) 75.61 Glucose 90 Calcium 8.0 L PFSH All Active Problems Discharge planning issues (Acute) DVT prophylaxis (Acute) Diarrhea (Acute) Acute renal failure (Acute) Medical History Abdominal aortic aneurysm Atypical chest pain Cervical radiculopathy DJD (degenerative joint disease) Hearing loss Heart block HLD (hyperlipidemia) HTN (hypertension) Hx of radiation therapy Hypothyroidism Inguinal hernia Neoplasm Surgical History S/P placement of cardiac pacemaker Family History Father Heart disease Stroke Hypertension Son Diabetes Daughter Diabetes Sister Cancer breast cancer Social History Smoking/Tobacco Use Status: Former Tobacco Use Smoking risk assessment performed?: Yes Alcohol Intake: current Alcohol Intake frequency: a few times a month Alcohol type: wine Drug use: Never Substance use type: does not use Do you feel safe at home: Yes Do you feel safe in your relationship?: Yes Time Spent with Patient Time Spent with Patient: <45 minutes Time was spent: preparing to see the patient(eg.review tests), referring, communicating with other health career and transition teacher, indepentently interpreting results, counseling the patient and care coordination
--- NOTE | 2022-11-22 12:31 | PDOC.CMDIS ---
Date of service: 11/22/22 Time of Service: 12:31 LACE Index Scoring Tool Questions: Length of Stay (in days): 4 - 6 Was the patient admitted via the E.D.?: Yes E.D. Visits: 1 Answers: Total Score: 8 Risk of Readmission: Low Risk Care Management Discharge Plan Reason for Hospitalization: Dehydration, Hypotension, septic shock Discharge Plan: Devin is discharged home via private vehicle with family. He will follow up with his PCP and discharge plan of care as instructed. No new services are ordered. Outpatient PT is not warranted at this time, per provider. Patient/Family Education Needs: Review discharge instruction, limitations and plan to follow up with community providers. Discuss ask me three.
--- NOTE | 2022-11-25 17:01 | INDS_ITS ---
Date of service: 11/22/22 PT Notes Visit Reasons: Dehydration,Hypotension,?septic shock Physical Therapy Inpatient Discharge Summary Date: 11/22/22 Dates of service: 11/18/2022 through 11/21/2022 This is a clinical summary of care provided for the duration of dates listed above. No charge was made in the completion of this documentation. Referring Doctor:? Lala Infante MD PT Orders: PT CONSULT: Limited ability Precautions: Standard, fall risk Patient Profile/Admitting Diagnosis:?? 81 year old male with PMHx of CAD s/p NSTEMI and w/ h/o chronic total occlusion of LAD per cardiac cath at [facility] in June, as well as h/o CHF, complete heart block s/p pacemaker, AAA, hyperlipidemia, hypothyroidism, who presented to [facility] ED at the recommendation of his PCP after having watery diarrhea x 1 week. He did notice that he was becoming weaker, had stumbled on his feet without LOC a couple of days ago hitting his R forehead on the wall, and has been using a walker to ambulate. Medical work up has confirmed enteritis, septic shock, and resulting dehydration and low blood pressure difficulty. His blood pressure has become more stable with medication assist, and is now appropriate for PT evaluation. PMHX: All Active Problems?(Updated 11/16/22 @ 17:50 by Lala Infante MD) Discharge planning issues (Acute) DVT prophylaxis (Acute) Enteritis (Acute) Perforated appendicitis (Acute) Septic shock (Acute) Diarrhea (Acute) Acute dehydration (Acute) Acute renal failure (Acute) Acute hyponatremia (Acute) Medical History?(Updated 11/16/22 @ 17:50 by Lala Infante MD) Abdominal aortic aneurysm Atypical chest pain Cervical radiculopathy DJD (degenerative joint disease) Hearing loss Heart block HLD (hyperlipidemia) HTN (hypertension) Hx of radiation therapy Hypothyroidism Inguinal hernia Neoplasm Surgical History?(Updated 11/16/22 @ 17:41 by Lala Infante MD) S/P placement of cardiac pacemaker ? Social History/Home Situation: Lives in a private 2 story home, with his . He has 4 stairs to enter with bilateral rails, and full flight of stairs in home has 2 rails. He does have a recliner her can sleep in in living room, with a bathroom on first and second floors. He has slept in recliner before, so this is a realistic accommodation if needed until he can achieve stairs to second floor. Prior to admission he was independent with all ADL', and doing higher level tasks such as weed wacking, mowing lawn, carrying objects on all terrain and upstairs, limited to 10# weight limitation due to heart condition. He did not use an assistive device, only used a walker x 2 days prior to presentation to ER due to his weakness from illness. Equipment Owned/DME: Walker Subjective: NT. See most recent QUALITY ASSURANCE SUPERVISOR notes. Objective:? General Observation: NT. See most recent QUALITY ASSURANCE SUPERVISOR notes. Mental Status: NT. See most recent QUALITY ASSURANCE SUPERVISOR notes. Pain: NT. See most recent QUALITY ASSURANCE SUPERVISOR notes. Vital Signs: NT. See most recent QUALITY ASSURANCE SUPERVISOR notes. ROM: Right Upper Extremity: Grossly WNL Left Upper Extremity: Limited to 160 deg scapular movement w shoulder hike movement, movement similar to RC pathology. Otherwise, R UE grossly WNL Right Lower Extremity: WNL Left Lower Extremity: WNL Strength: Right Upper Extremity: Genoveva flex 4+/5, abd 4/5, elbow 5/5 flex/ext, wrist and personal injury paralegal WNL Left Upper Extremity: Genoveva flex 4/5 w shoulder hike, abd 4-/5 w shoulder hike, otherwise WNL Right Lower Extremity: Grossly 5/5 throughout Left Lower Extremity: Grossly 5/5 throughout Sensation:?WNL OBJECTIVE: []? BED MOBILITY/TRANSFERS? Supine-sit: S? Sit-stand: S? Stand-sit: S? Bed-Chair: S? Chair-bed: S ? GAIT? Assistive Device: FWW ? Weight bearing:FWB Assist:SBA? Distance: approx 200'? Balance:? Static Sitting: Good Dynamic Sitting: Good Static Standing: Fair Dynamic Standing: Fair Stage 4 Balance Test Time (seconds) Feet together 10 Partial tandem 10 Tandem 5 One foot 2 ? Assessment:?? Patient is a? 81 year old male referred to physical therapy services due to limited ability post admission for enteritis, septic shock with resulting dehydration and low BP and now weakness limiting his ability to functional at pre-illness status.? Patient presents with with poor balance and global weakness, allowing for functional deficits of unsteady gait, transfers, need for RW for ambulation and transfers and close supervision. Goals: Goals X1 week 1. Supine-Sit independent NOT MET 2. Sit-Supine independent NOT MET 3. Sit-Stand independent NOT MET 4. Stand-Sit independent NOT MET 5. Bed-Chair independent NOT MET 6. Chair-Bed independent NOT MET 7. Gait 100 ft, no AD, independent NOT MET 8. Stairs 4 with bilateral rails, supervision NOT MET 9. Independent with home exercise program NOT MET 10. Balance - steady with dynamic standing and ambulation without AD v DISCHARGE RECOMMENDATIONS: Home with no services w outpatient PT rehabilitation to attend to anticipate weakness and endurance loss post illness TREATMENT CODE/TIME: [place] Thank you for the opportunity to participate in the care of this patient. Belem Brandt PT, DPT, CLT [facility] [place], [place]
--- NOTE | 2022-12-01 15:50 | NUR.NOTE ---
In chart for sepsis quality and educational audit Nursing Note:
== END 2022-11-22 12:40 | disposition home or self-care (01) | DRG 871 ==
LOC: ER 14:21 → ICU 16:16
PROVIDERS: Family Medicine; Admitting Provider Internal Medicine; Emergency Provider Student in an Organized Health Care Education/Training Program; PCP Physician Assistant; Visit Provider Internal Medicine
DX: A02.1 Salmonella sepsis (principal); N17.0 Acute kidney failure with tubular necrosis; R65.21 Severe sepsis with septic shock; A02.0 Salmonella enteritis; E87.1 Hypo-osmolality and hyponatremia; I44.2 Atrioventricular block, complete; E86.0 Dehydration; Z95.0 Presence of cardiac pacemaker; I71.40 Abdominal aortic aneurysm, without rupture, unspecified; I10 Essential (primary) hypertension; E78.5 Hyperlipidemia, unspecified; Z87.891 Personal history of nicotine dependence; I25.2 Old myocardial infarction; I25.10 Atherosclerotic heart disease of native coronary artery without angina pectoris; R07.89 Other chest pain; M54.12 Radiculopathy, cervical region; H91.90 Unspecified hearing loss, unspecified ear; E03.9 Hypothyroidism, unspecified; Z92.3 Personal history of irradiation; K40.90 Unilateral inguinal hernia, without obstruction or gangrene, not specified as recurrent
CPT/HCPCS: 36558; 76937; 36415; 36591; 71045; 80048; 80053; 82550; 83690; 84145; 87040; 87081; 87493; 87505; 87637; 92610; 93005; 96361; 96374; 97110; 97161; 97530; 99222; 99285; C8929; 74176; 80202; 81003; 81015; 82565; 83605; 83735; 84300; 84443; 85025; 86140; 87086; 93010; 99232; 99233; 99238; 99291; J1644; J2543; J3480

== ENCOUNTER 2024-04-05 15:28 | Outpatient (REF) | payer MEDICARE, SELFPAY ==
--- NOTE | 2024-04-05 11:00 | SKI_PTH ---
PATIENT: Devin Kim LOC: [facility] U#:[id number] AGE/SX: 83/M ROOM: RE04/05/[address]: Oc Moseley : 1940 BED: DIS: 04/05/2024 SPEC #: [id number] RECD: 04/05/24 17:24 STATUS: ALEXI RENeil #: [id number] QUIRINO: 04/05/24 11:[address]: Oc Moseley DEPT: Surgical Specimen RECD BY: Mercedes Holman Tissues: 1 - SKIN BIOPSY(SHAVE/PUNCH) 2 - SKIN BIOPSY(SHAVE/PUNCH) Procedures: SKIN LEVEL 4 Comments: [id number]
== END 2024-04-05 15:29 | disposition home or self-care (01) ==
LOC: NCHCN 15:28
PROVIDERS: PCP Physician Assistant; Visit Provider Physician Assistant
DX: L27.1 Localized skin eruption due to drugs and medicaments taken internally (principal); L85.8 Other specified epidermal thickening
CPT/HCPCS: 88305

== ENCOUNTER 2024-10-02 16:11 | Outpatient (REF) | payer MEDICARE, SELFPAY ==
[2024-10-02 16:12] LABS: Anion Gap 7.1 mmol/L (3-11); BUN 35 mg/dL (7-18); CO2 28.9 mmol/L (21.0-32.0); CREATININE 2.2 mg/dL (0.70-1.30); Calcium 9.6 mg/dL (8.5-10.1); Chloride 104 mmol/L (98-107); Estimated GFR 28.99 (mL/min/1.73m2); Glucose 114 mg/dL (74-106); NT-proBNP 630 pg/mL (<300); Potassium 4.8 mmol/L (3.5-5.1); Sodium 140 mmol/L (136-145); TSH 3.06 uIU/mL (0.36-3.74)
[2024-10-02 16:32] LABS: HCT 31.8 % (40.0-50.0); MCH 28.8 pg (27.0-33.0); MCHC 31.4 % (32.0-36.0); MCV 92 fL (80-95); Platelet Count 309 10^3/uL (130-400); RBC 3.47 10^6/uL (4.36-5.78); RDW 17.2 % (11.8-14.1); RDW-SD 57.8 fL; WBC 6.27 10^3/uL (4.4-10.8)
== END 2024-10-02 16:12 | disposition home or self-care (01) ==
LOC: NCHCN 16:11
PROVIDERS: PCP Physician Assistant; Visit Provider Physician Assistant
DX: I50.9 Heart failure, unspecified (principal); I10 Essential (primary) hypertension; E03.9 Hypothyroidism, unspecified
CPT/HCPCS: 80048; 85027; 83880; 84443